=== PATIENT | female | born 1965 | race Caucasian/White ===

== ENCOUNTER → 2017-12-07 09:26 | Outpatient (CLI) | payer OTHER, SELFPAY ==
--- NOTE | 2017-12-07 | DI.CT.S_ITS ---
PROCEDURE: CT ABDOMEN PELVIS W CON INDICATIONS: PELVIC SWELLING TECHNIQUE: After the administration of oral and intravenous contrast, 5 mm thick sections acquired from the diaphragms to the symphysis. 5 mm thick coronal and sagittal reformats were performed. For radiation dose reduction, the following was used: automated exposure control, adjustment of mA and/or kV according to patient size. COMPARISON: None. FINDINGS: Image quality: Excellent. ABDOMEN: Lung bases: Subsegmental dependent atelectasis/scarring. Heart size is normal. Solid organs: Mild hepatic steatosis. Gallbladder negative. Biliary system is non-dilated. Pancreas enhances normally. Spleen is normal in size and enhancement. No adrenal nodules. Kidneys are normal in size and enhancement, without hydronephrosis. Peritoneum and bowel: Stomach, small bowel, and colon loops are normal in caliber and wall thickness. No free fluid or air. Normal appendix. The rectum is grossly unremarkable. No evidence of acute diverticulitis. There is moderate retained stool throughout the colon Nodes and vessels: No retroperitoneal or mesenteric adenopathy. Aorta and inferior vena cava are normal in caliber. Miscellaneous: No ventral hernias. PELVIS: Genitourinary: Bladder wall thickness is normal. Heterogeneous appearance of the uterus with a hyperdense focus seen in the left fundus image 79 series 2 measuring 2 cm, indeterminate. Miscellaneous: Small fat-containing left inguinal hernia. No pelvic adenopathy. Bones: No suspicious bony lesions. No vertebral body compression fractures. IMPRESSION: Overall, no acute abnormality. No discrete mass seen in the region of the fiducial marker placed on the skin surface marking palpable abnormality in the midline infraumbilical region. Low attenuation region within the uterus raising possibility of fibroid although technically nonspecific. Further evaluation with dedicated pelvic ultrasound could be performed as clinically warranted. Small left inguinal fat containing hernia Dictated by: Sesar Salamanca M.D. on 12/07/2017 at 11:28 Approved by: Sesar Salamanca M.D. on 12/07/2017 at 11:34
== END ==
PROVIDERS: PCP Physician Assistant; Visit Provider Physician Assistant
DX: R19.09 Other intra-abdominal and pelvic swelling, mass and lump (principal); K40.90 Unilateral inguinal hernia, without obstruction or gangrene, not specified as recurrent
CPT/HCPCS: 74177; Q9967

== ENCOUNTER → 2017-12-21 09:55 | Outpatient (CLI) | payer OTHER, SELFPAY ==
--- NOTE | 2017-12-21 | DI.US.S_ITS ---
PROCEDURE: US PELVIC COMPLETE INDICATIONS: QUESTION FIBROID TECHNIQUE: Real-time scanning was performed of the pelvic organs, with image documentation. Additional endovaginal scanning was necessary due to incomplete visualization of the adnexal and endometrial structures by transabdominal scanning. COMPARISON: None. FINDINGS: Transabdominal scanning: Limited scanning through the kidneys shows no hydronephrosis. No pathologic free abdominal or pelvic fluid. Endovaginal scanning: Uterus: Uterus is normal in size at 2.5 x 5.4 x 6.2 cm, anteverted, and there is a left-sided anterior intramural 1.4 cm maximal dimension fibroid and also a right-sided posterior intramural 1.5 cm maximal dimension fibroid. There is no visualized calcification or abnormal vascularity associated with these structures. The endometrium measures 2.0 mm in combined thickness. Ovaries: The ovaries bilaterally appear normal, measuring up to 1.1 x 0.9 x 2.2 cm on the right and 1.5 x 1.3 x 1.5 cm on the left. IMPRESSION: Anteverted uterus contains 2 separate fibroids, the largest of which measures up to 1.5 cm. Occasionally the anteversion of the uterus can lead to the physical examination finding suspicious for mass but no pelvic/adnexal mass is identified. Continue close clinical correlation is recommended and if a mass hidden to ultrasound remains a clinical concern CT scanning with contrast should be obtained. Bowel gas for example could obscured visualization of a bowel mass. Dictated by: Дмитрий Alvarado M.D. on 12/21/2017 at 11:11 Approved by: Дмитрий Alvarado M.D. on 12/21/2017 at 11:15
== END ==
PROVIDERS: PCP Physician Assistant; Visit Provider Physician Assistant
DX: D25.1 Intramural leiomyoma of uterus (principal)
CPT/HCPCS: 76830; 76856

== ENCOUNTER 2018-06-20 13:27 | Observation (INO) | payer OTHER, SELFPAY ==
[2018-06-20] VITALS (18 sets, daily range): BP systolic 90–130; BP diastolic 48–68; PULSE 60–93; RESP 8–22; TEMP 36.3–36.8; O2SAT 92–100; BMI 27.4
--- NOTE | 2018-06-20 | PATH_ITS ---
[facility] Accession Number: [id number] . 01 Material submitted: . appendix - APPENDIX . 02 Diagnosis: Appendix: Acute appendicitis. MRV/06/22/2018 . 02 Electronically signed: . Derrell Villalta MD, Pathologist NPI- [id number] . 01 Gross description: . Received in formalin, labeled with the patient's name and appendix, is a 9.3 cm in length by 1.1 cm in diameter intact mckinley-brown appendix. The attached mckinley-brown mesoappendix measures 8.3 x 2.8 x 2.2 cm. The serosa is smooth and dusky and no perforation is noted. Sectioning reveals a lumen measuring 1.1 cm in maximal diameter with mckinley-brown mucosa. Two mckinley-brown fecaliths are present within the lumen measuring 0.9 and 1.1 cm in greatest dimension. The resection margin is inked black, and the specimen is representatively submitted as follows: A1 - longitudinal section of tip, cross-section of proximal margin, and additional cross-sections. (MAGNUS:[id number]) /MRV . 02 Pathologist provided ICD-10: K35.80 . 02 CPT . 478503 Performed at: 01 [facility] [address] [facility], [place], [place] [id number] MD Eleizer Rangel MD Phone: [phone] Performed at: 02 [facility] [address] [place], [place] [id number] MD Emily Canas MD Phone: [phone]
--- NOTE | 2018-06-20 13:58 | ED.ABDPAIN ---
HPI - Abdominal Pain <Carolina Thompson PA-C - Last Filed: 06/20/18 21:57> General Chief Complaint: Abdominal Pain Stated Complaint: ABD LOWER PAIN Time Seen by Provider: 06/20/18 13:47 Source: patient Mode of arrival: ambulatory Limitations: no limitations History of Present Illness HPI narrative: This 53-year-old female complains of onset of abdominal pain upon awakening this morning. She describes pain as throughout the lower abdomen, constant, no alleviating features but may be increases on her side and when supine. She has had nausea, no vomiting. Has not had any food or fluids today. She denies fever. She denies any diarrhea or blood in the stools but states bowel movements off today. She denies any new urinary symptoms. She denies any chest pain or dyspnea. No new pain or swelling in the extremities or other new symptoms on systems review. Related Data Home Medications Medication Instructions Recorded Confirmed estradiol 0.025 mg/24 hr weekly 1 patch TRANSDERMAL TU 09/14/17 06/20/18 transdermal patch progesterone micronized 100 mg 100 mg PO QPM 09/14/17 06/20/18 capsule calcium carbonate-vitamin D3 1 tab PO DAILY 06/20/18 06/20/18 [Calcium 600 with Vitamin D3] magnesium 1 tab PO DAILY 06/20/18 06/20/18 Allergies Allergy/AdvReac Type Severity Reaction Status Date / Time No Known Drug Allergies Allergy Verified 06/20/18 15:53 Review of Systems <Carolina Thompson PA-C - Last Filed: 06/20/18 21:57> Review of Systems ROS Unobtainable: All systems reviewed & are unremarkable except as noted in HPI and below PFSH <Carolina Thompson PA-C - Last Filed: 06/20/18 21:57> Medical History Menopausal syndrome (Chronic) No pertinent family history (Chronic) Surgical History No pertinent past surgical history (Chronic) Social History Smoking Status: Current every day smoker alcohol intake: current (once monthly) Social History household members: spouse Smoking Status: Current every day smoker alcohol intake: current Exam <Carolina Thompson PA-C - Last Filed: 06/20/18 21:57> Narrative Exam Narrative: GENERAL APPEARANCE: Patient resting, appears mildly uncomfortable but in NAD HEENT: PERRL, EOMI, no scleral icterus, conjunctivae pink NECK: Supple, no masses LUNGS: Clear to auscultation bilaterally. HEART: Rate and rhythm regular, normal S1 and S2, no S3 or S4. ABDOMEN: Soft, nondistended, bowel sounds present x 4 quadrants, no masses palpable, no hepatosplenomegaly. tender across the midline lower quadrants, more on the right around McBurney's point, no guarding, +rebound EXTREMITIES: No edema, no calf tenderness DERMATOLOGIC: No jaundice or exanthem NEUROLOGIC: Alert and oriented with normal speech and coordination Initial Vital Signs Initial Vital Signs: Vital Signs Temperature 97.5 F L 06/20/18 13:30 Pulse Rate 67 06/20/18 13:30 Respiratory Rate 22 06/20/18 13:30 Blood Pressure 124/67 06/20/18 13:30 Pulse Oximetry 100 06/20/18 13:30 <Keegan Shields DO - Last Filed: 06/21/18 07:04> Initial Vital Signs Initial Vital Signs: Vital Signs Temperature 97.5 F L 06/20/18 13:30 Pulse Rate 67 06/20/18 13:30 Respiratory Rate 22 06/20/18 13:30 Blood Pressure 124/67 06/20/18 13:30 Pulse Oximetry 100 06/20/18 13:30 Course <Carolina Thompson PA-C - Last Filed: 06/20/18 21:57> Additional Information: I have reviewed lab and CT findings with patient. She is feeling substantially improved after pain medications. I have spoken with Dr. Hobbs, addiction professional for surgery, and he will see patient here (working on booking OR). She has been NPO today. Orders Ordered: Dextrose/Sodium Chloride (Dextrose 5%-0.45% Ns) 1,000 mls @ 100 mls/hr IV CONT [facility]IDAD Last Admin: 06/21/18 04:55 Dose: 100 mls/hr Infusion: 06/21/18 04:55 Dose: 100 mls/hr Admin: 06/20/18 20:06 Dose: 100 mls/hr Ketorolac Tromethamine (Toradol) 30 mg IV Q6HR [facility] Stop: 06/25/18 18:15 Last Admin: 06/21/18 06:16 Dose: 30 mg Admin: 06/21/18 00:12 Dose: 30 mg Morphine Sulfate (Morphine) 1 mg IV Q2HR PRN PRN Reason: Pain, Moderate (4-6) Last Admin: 06/20/18 20:03 Dose: 1 mg Oxycodone/Acetaminophen (Percocet 5/325) 1 tab PO Q4HR PRN PRN Reason: Pain, Moderate (4-6) Last Admin: 06/20/18 20:03 Dose: 1 tab Ranitidine HCl (Zantac) 150 mg PO BID [facility] Last Admin: 06/20/18 20:03 Dose: 150 mg Discontinued Medications Bupivacaine HCl/Epinephrine Bitart (Sensorcaine 0.5% W/ Epi (Pf)) 30 ml INJ NOW ONE Stop: 06/20/18 16:50 Last Admin: 06/20/18 16:52 Dose: 10 ml Sodium Chloride 1,000 ml/ (Bacitracin 50,000 unit) 0 ml IRR NOW ONE Stop: 06/20/18 16:50 Last Admin: 06/20/18 16:49 Dose: 1,000 irrig.soln Fentanyl (Sublimaze) 50 mcg IV Q5MIN PRN PRN Reason: Pain, Moderate (4-6) Hydromorphone HCl (Dilaudid) 1 mg IV NOW ONE Stop: 06/20/18 14:18 Last Admin: 06/20/18 14:43 Dose: 1 mg Hydromorphone HCl (Dilaudid) 1 mg IV Q3H PRN PRN Reason: Pain, Moderate (4-6) Last Admin: 06/20/18 17:37 Dose: 1 mg Sodium Chloride (Normal Saline 0.9%) 1,000 mls @ 1,000 mls/hr IV BOLUS ONE Stop: 06/20/18 15:18 Last Infusion: 06/20/18 15:45 Dose: 0 mls/hr Admin: 06/20/18 14:42 Dose: 1,000 mls/hr Ceftriaxone Sodium/Dextrose (Rocephin) 2 gm in 50 mls @ 100 mls/hr IV NOW ONE Stop: 06/20/18 16:14 Last Infusion: 06/20/18 16:35 Dose: 0 mls/hr Admin: 06/20/18 15:48 Dose: 100 mls/hr Lactated Ringer's (Lactated Ringers) 1,000 mls @ 42 mls/hr IV NOW ONE Stop: 06/21/18 15:36 Last Infusion: 06/20/18 18:19 Dose: 0 mls/hr Admin: 06/20/18 17:12 Dose: 42 mls/hr Infusion: 06/20/18 17:12 Dose: 42 mls/hr Admin: 06/20/18 15:49 Dose: 42 mls/hr Lactated Ringer's (Lactated Ringers) 1,000 mls @ 42 mls/hr IV CONT CARIDAD Last Admin: 06/20/18 18:21 Dose: Not Given Dextrose/Sodium Chloride (Dextrose 5%-0.45% Ns) 1,000 mls @ 100 mls/hr IV CONT CARIDAD Last Admin: 06/20/18 18:21 Dose: Not Given Ketorolac Tromethamine (Toradol) 30 mg IV NOW ONE Stop: 06/20/18 14:18 Last Admin: 06/20/18 14:43 Dose: 30 mg Ketorolac Tromethamine (Toradol) 30 mg IV Q6HR CARID[facility] Stop: 06/25/18 17:10 Last Admin: 06/20/18 18:22 Dose: Not Given Admin: 06/20/18 17:20 Dose: 30 mg Metoclopramide HCl (Reglan) 10 mg IV NOW PRN PRN Reason: Nausea And Vomiting Morphine Sulfate (Morphine) 2 mg IV Q4HR PRN PRN Reason: Pain, Moderate (4-6) Neomycin/Polymyxin/Bacitracin (Neosporin) 1 each TOP NOW ONE Stop: 06/20/18 17:05 Last Admin: 06/20/18 17:05 Dose: 1 each Ondansetron HCl (Zofran) 4 mg IV NOW ONE Stop: 06/20/18 14:18 Last Admin: 06/20/18 14:43 Dose: 4 mg Ondansetron HCl (Zofran) 4 mg IV NOW PRN PRN Reason: Nausea And Vomiting Oxycodone/Acetaminophen (Percocet 5/325) 1 tab PO Q4HR PRN PRN Reason: Pain, Moderate (4-6) Ranitidine HCl (Zantac) 150 mg PO BID [facility] Vital Signs - 8 hr 06/21/18 05:08 Temperature 98.0 F Pulse Rate 72 Respiratory Rate 16 Blood Pressure 99/50 L Pulse Oximetry 93 <Keegan Shields, DO - Last Filed: 06/21/18 07:04> Orders Ordered: Dextrose/Sodium Chloride (Dextrose 5%-0.45% Ns) 1,000 mls @ 100 mls/hr IV CONT [facility] Last Admin: 06/21/18 04:55 Dose: 100 mls/hr Infusion: 06/21/18 04:55 Dose: 100 mls/hr Admin: 06/20/18 20:06 Dose: 100 mls/hr Ketorolac Tromethamine (Toradol) 30 mg IV Q6HR [facility] Stop: 06/25/18 18:15 Last Admin: 06/21/18 06:16 Dose: 30 mg Admin: 06/21/18 00:12 Dose: 30 mg Morphine Sulfate (Morphine) 1 mg IV Q2HR PRN PRN Reason: Pain, Moderate (4-6) Last Admin: 06/20/18 20:03 Dose: 1 mg Oxycodone/Acetaminophen (Percocet 5/325) 1 tab PO Q4HR PRN PRN Reason: Pain, Moderate (4-6) Last Admin: 06/20/18 20:03 Dose: 1 tab Ranitidine HCl (Zantac) 150 mg PO BID [facility] Last Admin: 06/20/18 20:03 Dose: 150 mg Discontinued Medications Bupivacaine HCl/Epinephrine Bitart (Sensorcaine 0.5% W/ Epi (Pf)) 30 ml INJ NOW ONE Stop: 06/20/18 16:50 Last Admin: 06/20/18 16:52 Dose: 10 ml Sodium Chloride 1,000 ml/ (Bacitracin 50,000 unit) 0 ml IRR NOW ONE Stop: 06/20/18 16:50 Last Admin: 06/20/18 16:49 Dose: 1,000 irrig.soln Fentanyl (Sublimaze) 50 mcg IV Q5MIN PRN PRN Reason: Pain, Moderate (4-6) Hydromorphone HCl (Dilaudid) 1 mg IV NOW ONE Stop: 06/20/18 14:18 Last Admin: 06/20/18 14:43 Dose: 1 mg Hydromorphone HCl (Dilaudid) 1 mg IV Q3H PRN PRN Reason: Pain, Moderate (4-6) Last Admin: 06/20/18 17:37 Dose: 1 mg Sodium Chloride (Normal Saline 0.9%) 1,000 mls @ 1,000 mls/hr IV BOLUS ONE Stop: 06/20/18 15:18 Last Infusion: 06/20/18 15:45 Dose: 0 mls/hr Admin: 06/20/18 14:42 Dose: 1,000 mls/hr Ceftriaxone Sodium/Dextrose (Rocephin) 2 gm in 50 mls @ 100 mls/hr IV NOW ONE Stop: 06/20/18 16:14 Last Infusion: 06/20/18 16:35 Dose: 0 mls/hr Admin: 06/20/18 15:48 Dose: 100 mls/hr Lactated Ringer's (Lactated Ringers) 1,000 mls @ 42 mls/hr IV NOW ONE Stop: 06/21/18 15:36 Last Infusion: 06/20/18 18:19 Dose: 0 mls/hr Admin: 06/20/18 17:12 Dose: 42 mls/hr Infusion: 06/20/18 17:12 Dose: 42 mls/hr Admin: 06/20/18 15:49 Dose: 42 mls/hr Lactated Ringer's (Lactated Ringers) 1,000 mls @ 42 mls/hr IV CONT CARIDAD Last Admin: 06/20/18 18:21 Dose: Not Given Dextrose/Sodium Chloride (Dextrose 5%-0.45% Ns) 1,000 mls @ 100 mls/hr IV CONT [facility] Last Admin: 06/20/18 18:21 Dose: Not Given Ketorolac Tromethamine (Toradol) 30 mg IV NOW ONE Stop: 06/20/18 14:18 Last Admin: 06/20/18 14:43 Dose: 30 mg Ketorolac Tromethamine (Toradol) 30 mg IV Q6HR [facility] Stop: 06/25/18 17:10 Last Admin: 06/20/18 18:22 Dose: Not Given Admin: 06/20/18 17:20 Dose: 30 mg Metoclopramide HCl (Reglan) 10 mg IV NOW PRN PRN Reason: Nausea And Vomiting Morphine Sulfate (Morphine) 2 mg IV Q4HR PRN PRN Reason: Pain, Moderate (4-6) Neomycin/Polymyxin/Bacitracin (Neosporin) 1 each TOP NOW ONE Stop: 06/20/18 17:05 Last Admin: 06/20/18 17:05 Dose: 1 each Ondansetron HCl (Zofran) 4 mg IV NOW ONE Stop: 06/20/18 14:18 Last Admin: 06/20/18 14:43 Dose: 4 mg Ondansetron HCl (Zofran) 4 mg IV NOW PRN PRN Reason: Nausea And Vomiting Oxycodone/Acetaminophen (Percocet 5/325) 1 tab PO Q4HR PRN PRN Reason: Pain, Moderate (4-6) Ranitidine HCl (Zantac) 150 mg PO BID [facility] Vital Signs - 8 hr 06/21/18 05:08 Temperature 98.0 F Pulse Rate 72 Respiratory Rate 16 Blood Pressure 99/50 L Pulse Oximetry 93 MDM - Abdominal Pain <Carolina Thompson PA-C - Last Filed: 06/20/18 21:57> Lab Data Attestation: I reviewed the patient's lab results. Result diagrams: 06/20/18 13:50 06/20/18 13:50 Lab Results 06/20/18 06/20/18 06/20/18 Range/Units 13:50 13:50 13:50 WBC 13.8 H (4.5-11.0) X10^3/uL RBC 4.92 (4.0-5.2) X10^6/uL Hgb 14.9 (12.0-16.0) g/dL Hct 43.0 (36-46) % MCV 87.4 (80-100) fL MCH 30.2 (26-34) PG MCHC 34.6 (30-36) % RDW 13.6 (11.6-14.8) % Plt Count 306 (150-400) X10^3/uL Neut % (Auto) 87.8 H (50-75) % Lymph % (Auto) 7.6 L (25-40) % [place] % (Auto) 4.1 (3-14) % Eos % (Auto) 0.1 L (2-4) % Baso % (Auto) 0.4 (0-2) % Neut # (Auto) 53293 H (4939-1965) /uL Lymph # (Auto) 1100 (9831-9767) /uL [place] # (Auto) 600 (0-900) /uL Eos # (Auto) 0 (0-450) /uL Baso # (Auto) 100 (0-100) /uL PT 11.1 (10.1-12.7) SECONDS INR 1.0 (0.9-1.3) APTT 34 (26.4-36.2) SECONDS Sodium 137 (137-145) mmol/L Potassium 3.7 (3.4-5.1) mmol/L Chloride 102 (98-107) mmol/L Carbon Dioxide 26 (22-32) mmol/L BUN 17 (7-17) mg/dL Creatinine 0.60 (0.52-1.04) mg/dL Estimated GFR > 60.0 (>60) mL/min BUN/Creatinine Ratio 28.3 H (6-22) Glucose 108 H (70-100) mg/dL Calcium 9.8 (8.4-10.2) mg/dL Total Bilirubin 0.8 (0.2-1.3) mg/dL AST 28 (14-36) IU/L ALT 31 (9-52) IU/L Alkaline Phosphatase 135 H (38-126) U/L C-Reactive Protein (<1.0) mg/dL Total Protein 8.2 (6.3-8.2) g/dL Albumin 4.7 (3.5-5.0) g/dL Globulin 3.5 (1.7-4.1) g/dL Albumin/Globulin Ratio 1.3 (1.0-2.8) Lipase 90 (23-300) U/L 06/20/18 Range/Units 13:50 WBC (4.5-11.0) X10^3/uL RBC (4.0-5.2) X10^6/uL Hgb (12.0-16.0) g/dL Hct (36-46) % MCV (80-100) fL MCH (26-34) PG MCHC (30-36) % RDW (11.6-14.8) % Plt Count (150-400) X10^3/uL Neut % (Auto) (50-75) % Lymph % (Auto) (25-40) % [place] % (Auto) (3-14) % Eos % (Auto) (2-4) % Baso % (Auto) (0-2) % Neut # (Auto) (4005-5821) /uL Lymph # (Auto) (2248-6687) /uL [place] # (Auto) (0-900) /uL Eos # (Auto) (0-450) /uL Baso # (Auto) (0-100) /uL PT (10.1-12.7) SECONDS INR (0.9-1.3) APTT (26.4-36.2) SECONDS Sodium (137-145) mmol/L Potassium (3.4-5.1) mmol/L Chloride (98-107) mmol/L Carbon Dioxide (22-32) mmol/L BUN (7-17) mg/dL Creatinine (0.52-1.04) mg/dL Estimated GFR (>60) mL/min BUN/Creatinine Ratio (6-22) Glucose (70-100) mg/dL Calcium (8.4-10.2) mg/dL Total Bilirubin (0.2-1.3) mg/dL AST (14-36) IU/L ALT (9-52) IU/L Alkaline Phosphatase (38-126) U/L C-Reactive Protein 0.8 (<1.0) mg/dL Total Protein (6.3-8.2) g/dL Albumin (3.5-5.0) g/dL Globulin (1.7-4.1) g/dL Albumin/Globulin Ratio (1.0-2.8) Lipase (23-300) U/L Imaging Data CT scan - abdomen: Radiologist's impression: 18 Carolina Thompson PA-C Find Patient Imaging Sebas Mendoza 53 F 1965 ACTIVITY DATE EXAM STATUS AUTHOR 06/20/18 14:[address] [address] [address] Scan Report Signed Patient: Sebas Mendoza RMR#: [id number] : 1965Acct:[id number] Age/Sex: 53 / FDate of Service: 06/20/18 Loc: ED Accession Number: [id number] Procedure: CT abdomen pelvis w con Ordering Provider: Carolina Thompson P.A-C PROCEDURE: CT ABDOMEN PELVIS W CON INDICATIONS: midline, right lower quad pain, nausea. TECHNIQUE: After the administration of intravenous contrast, 5 mm thick sections acquired from the diaphragm to the symphysis. 5 mm coronal and sagittal reformats were acquired. For radiation dose reduction, the following was used: automated exposure control, adjustment of mA and/or kV according to patient size. COMPARISON: Merged With [facility], CT, CT ABDOMEN PELVIS W CON, 12/07/2017, 10:25. FINDINGS: Image quality: Excellent. ABDOMEN: Lung bases: Lung bases are clear. Heart size is normal. Solid organs: Liver is normal in size and enhancement. Mild hepatic steatosis is seen. Gallbladder is within normal limits. Biliary system is non dilated. Pancreas enhances normally. Spleen is normal in size and enhancement. No adrenal nodules. Kidneys demonstrate normal size and enhancement, without hydronephrosis. Peritoneum and bowel: There is no evidence of bowel obstruction. Appendix is visualized in right lower quadrant abdomen and is enlarged in size measures up to 12 mm in diameter proximally. Multiple appendicoliths are seen including 8mm stone in proximal appendiceal lumen. There is diffuse appendiceal wall thickening and periappendiceal fat stranding consistent with acute appendicitis. No abscess collection. No evidence of perforation. No other area of abnormal bowel wall thickening. No free fluid or free air. Nodes and vessels: No retroperitoneal or mesenteric adenopathy by size criteria. Aorta and inferior vena cava are normal in size. Miscellaneous: No ventral hernias. PELVIS: Genitourinary: Bladder wall thickness is normal. Miscellaneous: No inguinal hernias or adenopathy. Bones: No suspicious bony lesions. No vertebral body compression fractures. IMPRESSION: 1. Finding is consistent with acute appendicitis with a numerous appendicoliths. No evidence of perforation. No bowel obstruction, free fluid or free air. 2. No renal stone or hydronephrosis. Dictated by: Jeff Cha M.D. on 06/20/2018 at 14:49 Approved by: Jeff Cha M.D. on 06/20/2018 at 14:51 ECG Data Attestation: I personally reviewed and interpreted this ECG as follows: (Sinus bradycardia with rate 55, normal axis) <Keegan Shields DO - Last Filed: 06/21/18 07:04> Lab Data Lab Results 0406/20/18 06/20/18 Range/Units 13:50 13:50 13:50 WBC 13.8 H (4.5-11.0) X10^3/uL RBC 4.92 (4.0-5.2) X10^6/uL Hgb 14.9 (12.0-16.0) g/dL Hct 43.0 (36-46) % MCV 87.4 (80-100) fL MCH 30.2 (26-34) PG MCHC 34.6 (30-36) % RDW 13.6 (11.6-14.8) % Plt Count 306 (150-400) X10^3/uL Neut % (Auto) 87.8 H (50-75) % Lymph % (Auto) 7.6 L (25-40) % [place] % (Auto) 4.1 (3-14) % Eos % (Auto) 0.1 L (2-4) % Baso % (Auto) 0.4 (0-2) % Neut # (Auto) 14885 H (1526-4336) /uL Lymph # (Auto) 1100 (5372-3330) /uL [place] # (Auto) 600 (0-900) /uL Eos # (Auto) 0 (0-450) /uL Baso # (Auto) 100 (0-100) /uL PT 11.1 (10.1-12.7) SECONDS INR 1.0 (0.9-1.3) APTT 34 (26.4-36.2) SECONDS Sodium 137 (137-145) mmol/L Potassium 3.7 (3.4-5.1) mmol/L Chloride 102 (98-107) mmol/L Carbon Dioxide 26 (22-32) mmol/L BUN 17 (7-17) mg/dL Creatinine 0.60 (0.52-1.04) mg/dL Estimated GFR > 60.0 (>60) mL/min BUN/Creatinine Ratio 28.3 H (6-22) Glucose 108 H (70-100) mg/dL Calcium 9.8 (8.4-10.2) mg/dL Total Bilirubin 0.8 (0.2-1.3) mg/dL AST 28 (14-36) IU/L ALT 31 (9-52) IU/L Alkaline Phosphatase 135 H (38-126) U/L C-Reactive Protein (<1.0) mg/dL Total Protein 8.2 (6.3-8.2) g/dL Albumin 4.7 (3.5-5.0) g/dL Globulin 3.5 (1.7-4.1) g/dL Albumin/Globulin Ratio 1.3 (1.0-2.8) Lipase 90 (23-300) U/L 06/20/18 Range/Units 13:50 WBC (4.5-11.0) X10^3/uL RBC (4.0-5.2) X10^6/uL Hgb (12.0-16.0) g/dL Hct (36-46) % MCV (80-100) fL MCH (26-34) PG MCHC (30-36) % RDW (11.6-14.8) % Plt Count (150-400) X10^3/uL Neut % (Auto) (50-75) % Lymph % (Auto) (25-40) % [place] % (Auto) (3-14) % Eos % (Auto) (2-4) % Baso % (Auto) (0-2) % Neut # (Auto) (5378-0739) /uL Lymph # (Auto) (8615-5937) /uL [place] # (Auto) (0-900) /uL Eos # (Auto) (0-450) /uL Baso # (Auto) (0-100) /uL PT (10.1-12.7) SECONDS INR (0.9-1.3) APTT (26.4-36.2) SECONDS Sodium (137-145) mmol/L Potassium (3.4-5.1) mmol/L Chloride (98-107) mmol/L Carbon Dioxide (22-32) mmol/L BUN (7-17) mg/dL Creatinine (0.52-1.04) mg/dL Estimated GFR (>60) mL/min BUN/Creatinine Ratio (6-22) Glucose (70-100) mg/dL Calcium (8.4-10.2) mg/dL Total Bilirubin (0.2-1.3) mg/dL AST (14-36) IU/L ALT (9-52) IU/L Alkaline Phosphatase (38-126) U/L C-Reactive Protein 0.8 (<1.0) mg/dL Total Protein (6.3-8.2) g/dL Albumin (3.5-5.0) g/dL Globulin (1.7-4.1) g/dL Albumin/Globulin Ratio (1.0-2.8) Lipase (23-300) U/L Discharge Plan Departure Patient Disposition: Admitted As Inpatient Clinical Impression: Appendicitis Qualifiers: Appendicitis type: acute appendicitis Acute appendicitis type: unspecified acute appendicitis type Qualified Code(s): K35.80 - Unspecified acute appendicitis Discharge Date/Time: 06/20/18 15:45 Interventions: ED Discharge Assessment Last Done: 06/20/18 15:45 Admit Date/Time: 06/20/18 15:27 Admit Provider: Oliver Sherman <Keegan Shields DO - Last Filed: 06/21/18 07:04> Cosign ED Attending Raul Attestation: I was available for consultation during this patient's emergency department encounter
[2018-06-20 14:04] LABS: Add Manual Diff / Slide Review NO; Basophils Absolute Auto 100 /uL (0-100); Basophils Percent Auto 0.4 % (0-2); Eosinophils Absolute Auto 0 /uL (0-450); Eosinophils Percent Auto 0.1 % (2-4); Hemoglobin 14.9 g/dL (12.0-16.0); Lymphocytes Absolute Auto 1100 /uL (1100-4500); Lymphocytes Percent Auto 7.6 % (25-40); Mean Corpuscular HGB Conc 34.6 % (30-36); Mean Corpuscular Hemoglobin 30.2 PG (26-34); Mean Corpuscular Volume 87.4 fL (80-100); Monocytes Absolute Auto 600 /uL (0-900); Monocytes Percent Auto 4.1 % (3-14); Neutrophils Absolute Auto 12100 /uL (1500-7000); Neutrophils Percent Auto 87.8 % (50-75); Platelet Count 306 X10^3/uL (150-400); Red Blood Cell Count 4.92 X10^6/uL (4.0-5.2); Red Cell Distribution Width 13.6 % (11.6-14.8); White Blood Cell Count 13.8 X10^3/uL (4.5-11.0)
[2018-06-20 14:12] LABS: Prothrombin Time 11.1 SECONDS (10.1-12.7)
[2018-06-20 14:14] LABS: PTT Partial Thromboplastin Tim 34 SECONDS (26.4-36.2)
[2018-06-20 14:17] LABS: Alanine Aminotransferase 31 IU/L (9-52); Albumin 4.7 g/dL (3.5-5.0); Albumin Globulin Ratio 1.3 (1.0-2.8); Alkaline Phosphatase 135 U/L (38-126); Aspartate Aminotransferase 28 IU/L (14-36); BUN Creatinine Ratio 28.3 (6-22); Bilirubin Total 0.8 mg/dL (0.2-1.3); Blood Urea Nitrogen 17 mg/dL (7-17); Calcium 9.8 mg/dL (8.4-10.2); Carbon Dioxide 26 mmol/L (22-32); Chloride 102 mmol/L (98-107); Estimated Glomerular Filt Rate > 60.0 mL/min (>60); Globulin 3.5 g/dL (1.7-4.1); Glucose 108 mg/dL (70-100); HEMOLYSIS < 15 (0-50); Lipase 90 U/L (23-300); Potassium 3.7 mmol/L (3.4-5.1); Sodium 137 mmol/L (137-145); Total Protein 8.2 g/dL (6.3-8.2)
--- NOTE | 2018-06-20 14:24 | ED_ITS ---
HPI - Abdominal Pain <Carolina Thompson PA-C - Last Filed: 06/20/18 21:57> General Chief Complaint: Abdominal Pain Stated Complaint: ABD LOWER PAIN Time Seen by Provider: 06/20/18 13:47 Source: patient Mode of arrival: ambulatory Limitations: no limitations History of Present Illness HPI narrative: This 53-year-old female complains of onset of abdominal pain upon awakening this morning. She describes pain as throughout the lower abdomen, constant, no alleviating features but may be increases on her side and when supine. She has had nausea, no vomiting. Has not had any food or fluids today. She denies fever. She denies any diarrhea or blood in the stools but states bowel movements off today. She denies any new urinary symptoms. She denies any chest pain or dyspnea. No new pain or swelling in the extremities or other new symptoms on systems review. Related Data Home Medications Medication Instructions Recorded Confirmed estradiol 0.025 mg/24 hr weekly 1 patch TRANSDERMAL TU 09/14/17 06/20/18 transdermal patch progesterone micronized 100 mg 100 mg PO QPM 09/14/17 06/20/18 capsule calcium carbonate-vitamin D3 1 tab PO DAILY 06/20/18 06/20/18 [Calcium 600 with Vitamin D3] magnesium 1 tab PO DAILY 06/20/18 06/20/18 Allergies Allergy/AdvReac Type Severity Reaction Status Date / Time No Known Drug Allergies Allergy Verified 06/20/18 15:53 Review of Systems <Carolina Thompson PA-C - Last Filed: 06/20/18 21:57> Review of Systems ROS Unobtainable: All systems reviewed & are unremarkable except as noted in HPI and below PFSH <Carolina Thompson PA-C - Last Filed: 06/20/18 21:57> Medical History Menopausal syndrome (Chronic) No pertinent family history (Chronic) Surgical History No pertinent past surgical history (Chronic) Social History Smoking Status: Current every day smoker alcohol intake: current (once monthly) Social History household members: spouse Smoking Status: Current every day smoker alcohol intake: current Exam <Carolina Thompson PA-C - Last Filed: 06/20/18 21:57> Narrative Exam Narrative: GENERAL APPEARANCE: Patient resting, appears mildly uncomfortable but in NAD HEENT: PERRL, EOMI, no scleral icterus, conjunctivae pink NECK: Supple, no masses LUNGS: Clear to auscultation bilaterally. HEART: Rate and rhythm regular, normal S1 and S2, no S3 or S4. ABDOMEN: Soft, nondistended, bowel sounds present x 4 quadrants, no masses palpable, no hepatosplenomegaly. tender across the midline lower quadrants, more on the right around McBurney's point, no guarding, +rebound EXTREMITIES: No edema, no calf tenderness DERMATOLOGIC: No jaundice or exanthem NEUROLOGIC: Alert and oriented with normal speech and coordination Initial Vital Signs Initial Vital Signs: Vital Signs Temperature 97.5 F L 06/20/18 13:30 Pulse Rate 67 06/20/18 13:30 Respiratory Rate 22 06/20/18 13:30 Blood Pressure 124/67 06/20/18 13:30 Pulse Oximetry 100 06/20/18 13:30 <Keegan Shields DO - Last Filed: 06/21/18 07:04> Initial Vital Signs Initial Vital Signs: Vital Signs Temperature 97.5 F L 06/20/18 13:30 Pulse Rate 67 06/20/18 13:30 Respiratory Rate 22 06/20/18 13:30 Blood Pressure 124/67 06/20/18 13:30 Pulse Oximetry 100 06/20/18 13:30 Course <Carolina Thompson PA-C - Last Filed: 06/20/18 21:57> Additional Information: I have reviewed lab and CT findings with patient. She is feeling substantially improved after pain medications. I have spoken with Dr. Hobbs, dairy nutrition consultant for surgery, and he will see patient here (working on booking OR). She has been NPO today. Orders Ordered: Dextrose/Sodium Chloride (Dextrose 5%-0.45% Ns) 1,000 mls @ 100 mls/hr IV CONT [facility] Last Admin: 06/21/18 04:55 Dose: 100 mls/hr Infusion: 06/21/18 04:55 Dose: 100 mls/hr Admin: 06/20/18 20:06 Dose: 100 mls/hr Ketorolac Tromethamine (Toradol) 30 mg IV Q6HR [facility] Stop: 06/25/18 18:15 Last Admin: 06/21/18 06:16 Dose: 30 mg Admin: 06/21/18 00:12 Dose: 30 mg Morphine Sulfate (Morphine) 1 mg IV Q2HR PRN PRN Reason: Pain, Moderate (4-6) Last Admin: 06/20/18 20:03 Dose: 1 mg Oxycodone/Acetaminophen (Percocet 5/325) 1 tab PO Q4HR PRN PRN Reason: Pain, Moderate (4-6) Last Admin: 06/20/18 20:03 Dose: 1 tab Ranitidine HCl (Zantac) 150 mg PO BID [facility] Last Admin: 06/20/18 20:03 Dose: 150 mg Discontinued Medications Bupivacaine HCl/Epinephrine Bitart (Sensorcaine 0.5% W/ Epi (Pf)) 30 ml INJ NOW ONE Stop: 06/20/18 16:50 Last Admin: 06/20/18 16:52 Dose: 10 ml Sodium Chloride 1,000 ml/ (Bacitracin 50,000 unit) 0 ml IRR NOW ONE Stop: 06/20/18 16:50 Last Admin: 06/20/18 16:49 Dose: 1,000 irrig.soln Fentanyl (Sublimaze) 50 mcg IV Q5MIN PRN PRN Reason: Pain, Moderate (4-6) Hydromorphone HCl (Dilaudid) 1 mg IV NOW ONE Stop: 06/20/18 14:18 Last Admin: 06/20/18 14:43 Dose: 1 mg Hydromorphone HCl (Dilaudid) 1 mg IV Q3H PRN PRN Reason: Pain, Moderate (4-6) Last Admin: 06/20/18 17:37 Dose: 1 mg Sodium Chloride (Normal Saline 0.9%) 1,000 mls @ 1,000 mls/hr IV BOLUS ONE Stop: 06/20/18 15:18 Last Infusion: 06/20/18 15:45 Dose: 0 mls/hr Admin: 06/20/18 14:42 Dose: 1,000 mls/hr Ceftriaxone Sodium/Dextrose (Rocephin) 2 gm in 50 mls @ 100 mls/hr IV NOW ONE Stop: 06/20/18 16:14 Last Infusion: 06/20/18 16:35 Dose: 0 mls/hr Admin: 06/20/18 15:48 Dose: 100 mls/hr Lactated Ringer's (Lactated Ringers) 1,000 mls @ 42 mls/hr IV NOW ONE Stop: 06/21/18 15:36 Last Infusion: 06/20/18 18:19 Dose: 0 mls/hr Admin: 06/20/18 17:12 Dose: 42 mls/hr Infusion: 06/20/18 17:12 Dose: 42 mls/hr Admin: 06/20/18 15:49 Dose: 42 mls/hr Lactated Ringer's (Lactated Ringers) 1,000 mls @ 42 mls/hr IV CONT CARIDAD Last Admin: 06/20/18 18:21 Dose: Not Given Dextrose/Sodium Chloride (Dextrose 5%-0.45% Ns) 1,000 mls @ 100 mls/hr IV CONT CARIDAD Last Admin: 06/20/18 18:21 Dose: Not Given Ketorolac Tromethamine (Toradol) 30 mg IV NOW ONE Stop: 06/20/18 14:18 Last Admin: 06/20/18 14:43 Dose: 30 mg Ketorolac Tromethamine (Toradol) 30 mg IV Q6HR CAR[facility] Stop: 06/25/18 17:10 Last Admin: 06/20/18 18:22 Dose: Not Given Admin: 06/20/18 17:20 Dose: 30 mg Metoclopramide HCl (Reglan) 10 mg IV NOW PRN PRN Reason: Nausea And Vomiting Morphine Sulfate (Morphine) 2 mg IV Q4HR PRN PRN Reason: Pain, Moderate (4-6) Neomycin/Polymyxin/Bacitracin (Neosporin) 1 each TOP NOW ONE Stop: 06/20/18 17:05 Last Admin: 06/20/18 17:05 Dose: 1 each Ondansetron HCl (Zofran) 4 mg IV NOW ONE Stop: 06/20/18 14:18 Last Admin: 06/20/18 14:43 Dose: 4 mg Ondansetron HCl (Zofran) 4 mg IV NOW PRN PRN Reason: Nausea And Vomiting Oxycodone/Acetaminophen (Percocet 5/325) 1 tab PO Q4HR PRN PRN Reason: Pain, Moderate (4-6) Ranitidine HCl (Zantac) 150 mg PO BID [facility] Vital Signs - 8 hr 06/21/18 05:08 Temperature 98.0 F Pulse Rate 72 Respiratory Rate 16 Blood Pressure 99/50 L Pulse Oximetry 93 <Keegan Shields, DO - Last Filed: 06/21/18 07:04> Orders Ordered: Dextrose/Sodium Chloride (Dextrose 5%-0.45% Ns) 1,000 mls @ 100 mls/hr IV CONT [facility] Last Admin: 06/21/18 04:55 Dose: 100 mls/hr Infusion: 06/21/18 04:55 Dose: 100 mls/hr Admin: 06/20/18 20:06 Dose: 100 mls/hr Ketorolac Tromethamine (Toradol) 30 mg IV Q6HR [facility] Stop: 06/25/18 18:15 Last Admin: 06/21/18 06:16 Dose: 30 mg Admin: 06/21/18 00:12 Dose: 30 mg Morphine Sulfate (Morphine) 1 mg IV Q2HR PRN PRN Reason: Pain, Moderate (4-6) Last Admin: 06/20/18 20:03 Dose: 1 mg Oxycodone/Acetaminophen (Percocet 5/325) 1 tab PO Q4HR PRN PRN Reason: Pain, Moderate (4-6) Last Admin: 06/20/18 20:03 Dose: 1 tab Ranitidine HCl (Zantac) 150 mg PO BID [facility] Last Admin: 06/20/18 20:03 Dose: 150 mg Discontinued Medications Bupivacaine HCl/Epinephrine Bitart (Sensorcaine 0.5% W/ Epi (Pf)) 30 ml INJ NOW ONE Stop: 06/20/18 16:50 Last Admin: 06/20/18 16:52 Dose: 10 ml Sodium Chloride 1,000 ml/ (Bacitracin 50,000 unit) 0 ml IRR NOW ONE Stop: 06/20/18 16:50 Last Admin: 06/20/18 16:49 Dose: 1,000 irrig.soln Fentanyl (Sublimaze) 50 mcg IV Q5MIN PRN PRN Reason: Pain, Moderate (4-6) Hydromorphone HCl (Dilaudid) 1 mg IV NOW ONE Stop: 06/20/18 14:18 Last Admin: 06/20/18 14:43 Dose: 1 mg Hydromorphone HCl (Dilaudid) 1 mg IV Q3H PRN PRN Reason: Pain, Moderate (4-6) Last Admin: 06/20/18 17:37 Dose: 1 mg Sodium Chloride (Normal Saline 0.9%) 1,000 mls @ 1,000 mls/hr IV BOLUS ONE Stop: 06/20/18 15:18 Last Infusion: 06/20/18 15:45 Dose: 0 mls/hr Admin: 06/20/18 14:42 Dose: 1,000 mls/hr Ceftriaxone Sodium/Dextrose (Rocephin) 2 gm in 50 mls @ 100 mls/hr IV NOW ONE Stop: 06/20/18 16:14 Last Infusion: 06/20/18 16:35 Dose: 0 mls/hr Admin: 06/20/18 15:48 Dose: 100 mls/hr Lactated Ringer's (Lactated Ringers) 1,000 mls @ 42 mls/hr IV NOW ONE Stop: 06/21/18 15:36 Last Infusion: 06/20/18 18:19 Dose: 0 mls/hr Admin: 06/20/18 17:12 Dose: 42 mls/hr Infusion: 06/20/18 17:12 Dose: 42 mls/hr Admin: 06/20/18 15:49 Dose: 42 mls/hr Lactated Ringer's (Lactated Ringers) 1,000 mls @ 42 mls/hr IV CONT CARIDAD Last Admin: 06/20/18 18:21 Dose: Not Given Dextrose/Sodium Chloride (Dextrose 5%-0.45% Ns) 1,000 mls @ 100 mls/hr IV CONT CARIDAD Last Admin: 06/20/18 18:21 Dose: Not Given Ketorolac Tromethamine (Toradol) 30 mg IV NOW ONE Stop: 06/20/18 14:18 Last Admin: 06/20/18 14:43 Dose: 30 mg Ketorolac Tromethamine (Toradol) 30 mg IV Q6HR [facility] Stop: 06/25/18 17:10 Last Admin: 06/20/18 18:22 Dose: Not Given Admin: 06/20/18 17:20 Dose: 30 mg Metoclopramide HCl (Reglan) 10 mg IV NOW PRN PRN Reason: Nausea And Vomiting Morphine Sulfate (Morphine) 2 mg IV Q4HR PRN PRN Reason: Pain, Moderate (4-6) Neomycin/Polymyxin/Bacitracin (Neosporin) 1 each TOP NOW ONE Stop: 06/20/18 17:05 Last Admin: 06/20/18 17:05 Dose: 1 each Ondansetron HCl (Zofran) 4 mg IV NOW ONE Stop: 06/20/18 14:18 Last Admin: 06/20/18 14:43 Dose: 4 mg Ondansetron HCl (Zofran) 4 mg IV NOW PRN PRN Reason: Nausea And Vomiting Oxycodone/Acetaminophen (Percocet 5/325) 1 tab PO Q4HR PRN PRN Reason: Pain, Moderate (4-6) Ranitidine HCl (Zantac) 150 mg PO BID [facility] Vital Signs - 8 hr 06/21/18 05:08 Temperature 98.0 F Pulse Rate 72 Respiratory Rate 16 Blood Pressure 99/50 L Pulse Oximetry 93 MDM - Abdominal Pain <Carolina Thompson PA-C - Last Filed: 06/20/18 21:57> Lab Data Attestation: I reviewed the patient's lab results. Result diagrams: 06/20/18 13:50 06/20/18 13:50 Lab Results 06/20/18 06/20/18 06/20/18 Range/Units 13:50 13:50 13:50 WBC 13.8 H (4.5-11.0) X10^3/uL RBC 4.92 (4.0-5.2) X10^6/uL Hgb 14.9 (12.0-16.0) g/dL Hct 43.0 (36-46) % MCV 87.4 (80-100) fL MCH 30.2 (26-34) PG MCHC 34.6 (30-36) % RDW 13.6 (11.6-14.8) % Plt Count 306 (150-400) X10^3/uL Neut % (Auto) 87.8 H (50-75) % Lymph % (Auto) 7.6 L (25-40) % Roane % (Auto) 4.1 (3-14) % Eos % (Auto) 0.1 L (2-4) % Baso % (Auto) 0.4 (0-2) % Neut # (Auto) 01169 H (2610-2353) /uL Lymph # (Auto) 1100 (4335-0435) /uL Roane # (Auto) 600 (0-900) /uL Eos # (Auto) 0 (0-450) /uL Baso # (Auto) 100 (0-100) /uL PT 11.1 (10.1-12.7) SECONDS INR 1.0 (0.9-1.3) APTT 34 (26.4-36.2) SECONDS Sodium 137 (137-145) mmol/L Potassium 3.7 (3.4-5.1) mmol/L Chloride 102 (98-107) mmol/L Carbon Dioxide 26 (22-32) mmol/L BUN 17 (7-17) mg/dL Creatinine 0.60 (0.52-1.04) mg/dL Estimated GFR > 60.0 (>60) mL/min BUN/Creatinine Ratio 28.3 H (6-22) Glucose 108 H (70-100) mg/dL Calcium 9.8 (8.4-10.2) mg/dL Total Bilirubin 0.8 (0.2-1.3) mg/dL AST 28 (14-36) IU/L ALT 31 (9-52) IU/L Alkaline Phosphatase 135 H (38-126) U/L C-Reactive Protein (<1.0) mg/dL Total Protein 8.2 (6.3-8.2) g/dL Albumin 4.7 (3.5-5.0) g/dL Globulin 3.5 (1.7-4.1) g/dL Albumin/Globulin Ratio 1.3 (1.0-2.8) Lipase 90 (23-300) U/L 06/20/18 Range/Units 13:50 WBC (4.5-11.0) X10^3/uL RBC (4.0-5.2) X10^6/uL Hgb (12.0-16.0) g/dL Hct (36-46) % MCV (80-100) fL MCH (26-34) PG MCHC (30-36) % RDW (11.6-14.8) % Plt Count (150-400) X10^3/uL Neut % (Auto) (50-75) % Lymph % (Auto) (25-40) % Roane % (Auto) (3-14) % Eos % (Auto) (2-4) % Baso % (Auto) (0-2) % Neut # (Auto) (5019-6738) /uL Lymph # (Auto) (6630-0972) /uL Roane # (Auto) (0-900) /uL Eos # (Auto) (0-450) /uL Baso # (Auto) (0-100) /uL PT (10.1-12.7) SECONDS INR (0.9-1.3) APTT (26.4-36.2) SECONDS Sodium (137-145) mmol/L Potassium (3.4-5.1) mmol/L Chloride (98-107) mmol/L Carbon Dioxide (22-32) mmol/L BUN (7-17) mg/dL Creatinine (0.52-1.04) mg/dL Estimated GFR (>60) mL/min BUN/Creatinine Ratio (6-22) Glucose (70-100) mg/dL Calcium (8.4-10.2) mg/dL Total Bilirubin (0.2-1.3) mg/dL AST (14-36) IU/L ALT (9-52) IU/L Alkaline Phosphatase (38-126) U/L C-Reactive Protein 0.8 (<1.0) mg/dL Total Protein (6.3-8.2) g/dL Albumin (3.5-5.0) g/dL Globulin (1.7-4.1) g/dL Albumin/Globulin Ratio (1.0-2.8) Lipase (23-300) U/L Imaging Data CT scan - abdomen: Radiologist's impression: 18 Carolina Thompson PA-C Find Patient Imaging Sebas Mendoza 53 F 1965 ACTIVITY DATE EXAM STATUS AUTHOR 06/20/18 14:[address] [address] [address] Scan Report Signed Patient: Sebas Mendoza RMR#: [id number] : 1965Acct:[id number] Age/Sex: 53 / FDate of Service: 06/20/18 Loc: ED Accession Number: [id number] Procedure: CT abdomen pelvis w con Ordering Provider: Carolina Thompson P.A-C PROCEDURE: CT ABDOMEN PELVIS W CON INDICATIONS: midline, right lower quad pain, nausea. TECHNIQUE: After the administration of intravenous contrast, 5 mm thick sections acquired from the diaphragm to the symphysis. 5 mm coronal and sagittal reformats were acquired. For radiation dose reduction, the following was used: automated exposure control, adjustment of mA and/or kV according to patient size. COMPARISON: [facility] [place], CT, CT ABDOMEN PELVIS W CON, 12/07/2017, 10:25. FINDINGS: Image quality: Excellent. ABDOMEN: Lung bases: Lung bases are clear. Heart size is normal. Solid organs: Liver is normal in size and enhancement. Mild hepatic steatosis is seen. Gallbladder is within normal limits. Biliary system is non dilated. Pancreas enhances normally. Spleen is normal in size and enhancement. No adrenal nodules. Kidneys demonstrate normal size and enhancement, without hydronephrosis. Peritoneum and bowel: There is no evidence of bowel obstruction. Appendix is visualized in right lower quadrant abdomen and is enlarged in size measures up to 12 mm in diameter proximally. Multiple appendicoliths are seen including 8mm stone in proximal appendiceal lumen. There is diffuse appendiceal wall thickening and periappendiceal fat stranding consistent with acute appendicitis. No abscess collection. No evidence of perforation. No other area of abnormal bowel wall thickening. No free fluid or free air. Nodes and vessels: No retroperitoneal or mesenteric adenopathy by size criteria. Aorta and inferior vena cava are normal in size. Miscellaneous: No ventral hernias. PELVIS: Genitourinary: Bladder wall thickness is normal. Miscellaneous: No inguinal hernias or adenopathy. Bones: No suspicious bony lesions. No vertebral body compression fractures. IMPRESSION: 1. Finding is consistent with acute appendicitis with a numerous appendicoliths. No evidence of perforation. No bowel obstruction, free fluid or free air. 2. No renal stone or hydronephrosis. Dictated by: Jeff Cha M.D. on 06/20/2018 at 14:49 Approved by: Jeff Cha M.D. on 06/20/2018 at 14:51 ECG Data Attestation: I personally reviewed and interpreted this ECG as follows: (Sinus bradycardia with rate 55, normal axis) <Keegan Shields DO - Last Filed: 06/21/18 07:04> Lab Data Lab Results 0406/20/18 06/20/18 Range/Units 13:50 13:50 13:50 WBC 13.8 H (4.5-11.0) X10^3/uL RBC 4.92 (4.0-5.2) X10^6/uL Hgb 14.9 (12.0-16.0) g/dL Hct 43.0 (36-46) % MCV 87.4 (80-100) fL MCH 30.2 (26-34) PG MCHC 34.6 (30-36) % RDW 13.6 (11.6-14.8) % Plt Count 306 (150-400) X10^3/uL Neut % (Auto) 87.8 H (50-75) % Lymph % (Auto) 7.6 L (25-40) % Roane % (Auto) 4.1 (3-14) % Eos % (Auto) 0.1 L (2-4) % Baso % (Auto) 0.4 (0-2) % Neut # (Auto) 68432 H (1555-8193) /uL Lymph # (Auto) 1100 (3462-4313) /uL Roane # (Auto) 600 (0-900) /uL Eos # (Auto) 0 (0-450) /uL Baso # (Auto) 100 (0-100) /uL PT 11.1 (10.1-12.7) SECONDS INR 1.0 (0.9-1.3) APTT 34 (26.4-36.2) SECONDS Sodium 137 (137-145) mmol/L Potassium 3.7 (3.4-5.1) mmol/L Chloride 102 (98-107) mmol/L Carbon Dioxide 26 (22-32) mmol/L BUN 17 (7-17) mg/dL Creatinine 0.60 (0.52-1.04) mg/dL Estimated GFR > 60.0 (>60) mL/min BUN/Creatinine Ratio 28.3 H (6-22) Glucose 108 H (70-100) mg/dL Calcium 9.8 (8.4-10.2) mg/dL Total Bilirubin 0.8 (0.2-1.3) mg/dL AST 28 (14-36) IU/L ALT 31 (9-52) IU/L Alkaline Phosphatase 135 H (38-126) U/L C-Reactive Protein (<1.0) mg/dL Total Protein 8.2 (6.3-8.2) g/dL Albumin 4.7 (3.5-5.0) g/dL Globulin 3.5 (1.7-4.1) g/dL Albumin/Globulin Ratio 1.3 (1.0-2.8) Lipase 90 (23-300) U/L 06/20/18 Range/Units 13:50 WBC (4.5-11.0) X10^3/uL RBC (4.0-5.2) X10^6/uL Hgb (12.0-16.0) g/dL Hct (36-46) % MCV (80-100) fL MCH (26-34) PG MCHC (30-36) % RDW (11.6-14.8) % Plt Count (150-400) X10^3/uL Neut % (Auto) (50-75) % Lymph % (Auto) (25-40) % Roane % (Auto) (3-14) % Eos % (Auto) (2-4) % Baso % (Auto) (0-2) % Neut # (Auto) (6417-5844) /uL Lymph # (Auto) (9580-3508) /uL Roane # (Auto) (0-900) /uL Eos # (Auto) (0-450) /uL Baso # (Auto) (0-100) /uL PT (10.1-12.7) SECONDS INR (0.9-1.3) APTT (26.4-36.2) SECONDS Sodium (137-145) mmol/L Potassium (3.4-5.1) mmol/L Chloride (98-107) mmol/L Carbon Dioxide (22-32) mmol/L BUN (7-17) mg/dL Creatinine (0.52-1.04) mg/dL Estimated GFR (>60) mL/min BUN/Creatinine Ratio (6-22) Glucose (70-100) mg/dL Calcium (8.4-10.2) mg/dL Total Bilirubin (0.2-1.3) mg/dL AST (14-36) IU/L ALT (9-52) IU/L Alkaline Phosphatase (38-126) U/L C-Reactive Protein 0.8 (<1.0) mg/dL Total Protein (6.3-8.2) g/dL Albumin (3.5-5.0) g/dL Globulin (1.7-4.1) g/dL Albumin/Globulin Ratio (1.0-2.8) Lipase (23-300) U/L Discharge Plan Departure Patient Disposition: Admitted As Inpatient Clinical Impression: Appendicitis Qualifiers: Appendicitis type: acute appendicitis Acute appendicitis type: unspecified acute appendicitis type Qualified Code(s): K35.80 - Unspecified acute appendicitis Discharge Date/Time: 06/20/18 15:45 Interventions: ED Discharge Assessment Last Done: 06/20/18 15:45 Admit Date/Time: 06/20/18 15:27 Admit Provider: Oliver Sherman <Keegan Shields DO - Last Filed: 06/21/18 07:04> Cosign ED Attending Raul Attestation: I was available for consultation during this patient's emergency department encounter
--- NOTE | 2018-06-20 14:29 | DI.CT.S_ITS ---
PROCEDURE: CT ABDOMEN PELVIS W CON INDICATIONS: midline, right lower quad pain, nausea. TECHNIQUE: After the administration of intravenous contrast, 5 mm thick sections acquired from the diaphragm to the symphysis. 5 mm coronal and sagittal reformats were acquired. For radiation dose reduction, the following was used: automated exposure control, adjustment of mA and/or kV according to patient size. COMPARISON: [facility], CT, CT ABDOMEN PELVIS W CON, 12/07/2017, 10:25. FINDINGS: Image quality: Excellent. ABDOMEN: Lung bases: Lung bases are clear. Heart size is normal. Solid organs: Liver is normal in size and enhancement. Mild hepatic steatosis is seen. Gallbladder is within normal limits. Biliary system is non dilated. Pancreas enhances normally. Spleen is normal in size and enhancement. No adrenal nodules. Kidneys demonstrate normal size and enhancement, without hydronephrosis. Peritoneum and bowel: There is no evidence of bowel obstruction. Appendix is visualized in right lower quadrant abdomen and is enlarged in size measures up to 12 mm in diameter proximally. Multiple appendicoliths are seen including 8mm stone in proximal appendiceal lumen. There is diffuse appendiceal wall thickening and periappendiceal fat stranding consistent with acute appendicitis. No abscess collection. No evidence of perforation. No other area of abnormal bowel wall thickening. No free fluid or free air. Nodes and vessels: No retroperitoneal or mesenteric adenopathy by size criteria. Aorta and inferior vena cava are normal in size. Miscellaneous: No ventral hernias. PELVIS: Genitourinary: Bladder wall thickness is normal. Miscellaneous: No inguinal hernias or adenopathy. Bones: No suspicious bony lesions. No vertebral body compression fractures. IMPRESSION: 1. Finding is consistent with acute appendicitis with a numerous appendicoliths. No evidence of perforation. No bowel obstruction, free fluid or free air. 2. No renal stone or hydronephrosis. Dictated by: Jeff Cha M.D. on 06/20/2018 at 14:49 Approved by: Jeff Cha M.D. on 06/20/2018 at 14:51
[2018-06-20] MEDS: SODIUM CHLORIDE 0.9% 1,000 ML 1000 ML IV (14:42)
[2018-06-20] MEDS: KETOROLAC 60 MG/2 ML VIAL 30 MG IV (14:43)
[2018-06-20] MEDS: HYDROMORPHONE 1 MG INJ IV (14:43)
[2018-06-20] MEDS: ONDANSETRON 4 MG/2 ML INJ IV (14:43)
--- NOTE | 2018-06-20 14:48 | PC.NURSE ---
intermittently pt rubbing left abdomin due to pain, noted mouth dryness. eyes closed due to pain. medicated for comfort.
[2018-06-20 14:57] LABS: C-Reactive Protein Quant 0.8 mg/dL (<1.0)
--- NOTE | 2018-06-20 15:17 | PC.NURSE ---
pt reports woke up with lower abdominal pain, with nausea. felt like have to go to the bathroom, went to work, and gotten worsen. unable to sleep due to pain. last solid meal yesterday at 5pm, had candybar at 8am. sips of water. normal bm today.
[2018-06-20] MEDS: CEFTRIAXONE 2 GM/50 ML FROZ.PIGGY IV (15:48)
[2018-06-20] MEDS: LACTATED RINGERS 1,000 ML 42 ML IV ×2 (15:49→17:12)
--- NOTE | 2018-06-20 15:49 | PM.HP.1 ---
History of Present Illness Date Patient Seen: 06/20/18 Time Patient Seen: 15:50 Chief complaint: ABD LOWER PAIN Narrative: 53-year-old white female patient developed mid abdominal pain right upper quadrant pain early this morning. The pain then migrated to the right lower quadrant of the abdomen. Patient's pain has been 10/10. She then presented to the emergency department here at [facility]. She has a slightly elevated white cell count. CT scan of the abdomen confirms acute uncomplicated appendicitis no abscess. Patient History Medical History Menopausal syndrome (Chronic) No pertinent family history (Chronic) Surgical History No pertinent past surgical history (Chronic) Social History Smoking Status: Current every day smoker alcohol intake: current (once monthly) Family & Social History Safety & Behavioral: Feels Safe in Current Yes Environment Been Physically Hurt or No Threatened By a Person Tobacco & Substance use: Smoking Status Current every day smoker alcohol intake current alcohol intake frequency holiday/special occasion Substance Use Type does not use Meds Home Medications Medication Instructions Recorded Confirmed Type estradiol 0.025 mg/24 hr weekly 1 patch TRANSDERMAL TU 09/14/17 06/20/18 History transdermal patch progesterone micronized 100 mg 100 mg PO QPM 09/14/17 06/20/18 History capsule calcium carbonate-vitamin D3 1 tab PO DAILY 06/20/18 06/20/18 History [Calcium 600 with Vitamin D3] magnesium 1 tab PO DAILY 06/20/18 06/20/18 History Allergies Allergy/AdvReac Type Severity Reaction Status Date / Time No Known Drug Allergies Allergy Unverified 09/14/17 12:40 Review of Systems Review of Systems All systems reviewed & are unremarkable except as noted in HPI and below Exam Vital Signs (past 8 hours): - 06/20/18 13:30 06/20/18 14:00 Temperature 97.5 F L Pulse Rate 67 62 Respiratory Rate 22 21 Blood Pressure 124/67 Blood Pressure [Right Arm] 130/62 Pulse Oximetry 100 100 Oxygen Delivery Method Room Air Narrative Exam Narrative: ears nose and throat are unremarkable lungs are clear with no rales or wheezes heart regular rhythm no murmur abdomen is tender in the right lower quadrant with guarding and rebound tenderness. No masses palpated the remaining physical is unremarkable. Objective Labs Result Diagrams: 06/20/18 13:50 06/20/18 13:50 Labs: Laboratory Results - last 24 hr 06/20/18 06/20/18 06/20/18 13:50 13:50 13:50 WBC 13.8 H RBC 4.92 Hgb 14.9 Hct 43.0 MCV 87.4 MCH 30.2 MCHC 34.6 RDW 13.6 Plt Count 306 Neut % (Auto) 87.8 H Lymph % (Auto) 7.6 L [place] % (Auto) 4.1 Eos % (Auto) 0.1 L Baso % (Auto) 0.4 Neut # (Auto) 54355 H Lymph # (Auto) 1100 [place] # (Auto) 600 Eos # (Auto) 0 Baso # (Auto) 100 PT 11.1 INR 1.0 APTT 34 Sodium 137 Potassium 3.7 Chloride 102 Carbon Dioxide 26 BUN 17 Creatinine 0.60 Estimated GFR > 60.0 BUN/Creatinine Ratio 28.3 H Glucose 108 H Calcium 9.8 Total Bilirubin 0.8 AST 28 ALT 31 Alkaline Phosphatase 135 H C-Reactive Protein Total Protein 8.2 Albumin 4.7 Globulin 3.5 Albumin/Globulin Ratio 1.3 Lipase 90 06/20/18 13:50 WBC RBC Hgb Hct MCV MCH MCHC RDW Plt Count Neut % (Auto) Lymph % (Auto) [place] % (Auto) Eos % (Auto) Baso % (Auto) Neut # (Auto) Lymph # (Auto) [place] # (Auto) Eos # (Auto) Baso # (Auto) PT INR APTT Sodium Potassium Chloride Carbon Dioxide BUN Creatinine Estimated GFR BUN/Creatinine Ratio Glucose Calcium Total Bilirubin AST ALT Alkaline Phosphatase C-Reactive Protein 0.8 Total Protein Albumin Globulin Albumin/Globulin Ratio Lipase Assessment & Plan Assessment & Plan narrative: Patient has CT scan evidence of acute appendicitis which is consistent with her physical exam and history. Plan is intravenous antibiotics now and urgent appendectomy. Patient understands the problem and the operation and agrees to the plan.
[2018-06-20] MEDS: SODIUM CHLORIDE IRRIG SOLUTION 1,000 ML, BACITRACIN 50,000 UNIT IRR (16:49)
[2018-06-20] MEDS: BUPIVACAINE 0.5% W/ EPI (PF) VIAL 30 ML INJ (16:52)
[2018-06-20] MEDS: NEOMYCIN/POLYMYXIN/BACITRA UD OINT 1 EACH TOP (17:05)
--- NOTE | 2018-06-20 17:13 | PM.OP.1 ---
Operative Date/Time/Diagnoses Date of procedure: 06/20/18 Time of procedure: 17:13 Pre-op diagnosis: Acute uncomplicated appendicitis Post-op diagnosis: same Procedure & Clinicians Procedure: Appendectomy Same procedure as scheduled: Yes Surgeon: Oliver Sherman Click Yes if Unassisted: Yes Anesthesia Type: General Operative Notes Findings: Patient had acute uncomplicated appendicitis not ruptured no abscess Closure Type: primary Specimen(s): other Estimated Blood Loss (mL): 50 Procedure in detail: Patient was given general endotracheal anesthetic prepped and draped in a sterile fashion exposure of the lower abdomen properly identified during surgical pause. Jimmy-Rajinder incision was made over McBurney's point the oblique muscles split in the great iron fashion to expose the peritoneum which was elevated and entered so as to avoid injury to the underlying structures. The cecum was rotated into the wound. The appendix was identified was acutely inflamed coated with fibrin but not ruptured and there was no abscess. The mesoappendix was divided between clamps the vessels ligated with 2 0 Vicryl there was excellent hemostasis the base the appendix was divided over a TA 30? staple line which was secure and intact the appendix less removed and cultured. The pelvis irrigated with copious saline containing bacitracin. There was no bleeding and no further signs of infection. The peritoneum closed with a running 2 0 Vicryl. The oblique fascia closed with 1. Monocryl. the subcu irrigated with bacitracin saline aspirated dry there is no bleeding. The skin rahel sterile dressings applied procedure was very well tolerated. Complications: none Condition: stable Disposition: PACU
[2018-06-20] MEDS: KETOROLAC 30 MG/ML VIAL IV (17:20)
--- NOTE | 2018-06-20 17:33 | SUR.PHASEI ---
Pt arrived awake, smiling. Coughed x1 and became teary, holding surgical site. C/o 8/10 abd pain, medicated by Dr. Espinoza x2. Verified ok to start toradol now with Dr. Hobbs and Dr. Espinoza. Pt reported pain decreasing to 5/10, still mildly teary. Dr. Lea notified pt received Toradol at 1445, verified ok to continue with ordered Toradol schedule.
[2018-06-20] MEDS: HYDROMORPHONE 2 MG INJ 1 MG IV (17:37)
--- NOTE | 2018-06-20 17:46 | SUR.PHASEI ---
Report called to Des.
--- NOTE | 2018-06-20 17:50 | SUR.PHASEI ---
Pt status update given to Dr. Espinoza
--- NOTE | 2018-06-20 18:14 | SUR.PHASEI ---
Pt transferred to the floor. VS stable. Drsg cdi. IV saline locked. Belongings bag in room.
--- NOTE | 2018-06-20 18:19 | SUR.PHASEI ---
Verified no abx ordered for patient with Dr. Hobbs. Eulalia notified.
[2018-06-20] MEDS: OXYCODONE/ACETAMINOPHEN 5/325 TABLET 1 TAB PO (20:03)
[2018-06-20] MEDS: MORPHINE 2 MG/ML INJ 1 MG IV (20:03)
[2018-06-20] MEDS: DEXTROSE 5%-0.45% NS 1,000 ML 100 ML IV (20:06)
[2018-06-21] MEDS: KETOROLAC 30 MG/ML VIAL IV ×2 (00:12→06:16)
[2018-06-21] MEDS: DEXTROSE 5%-0.45% NS 1,000 ML 100 ML IV (04:55)
[2018-06-21 05:08] VITALS: BP 99/50; PULSE 72; RESP 16; TEMP 36.7; O2SAT 93
[2018-06-21 08:23] VITALS: BP 98/57; PULSE 57; RESP 16; TEMP 36.4; O2SAT 96
[2018-06-21 08:45] VITALS: PULSE 66; O2SAT 96
--- NOTE | 2018-06-21 09:36 | P.PN_ITS ---
Subjective Date Patient Seen: 06/21/18 Time Patient Seen: 09:34 Interval history: Patient came to the emergency room was discovered to have acute uncomplicated appendicitis yesterday afternoon. She underwent an open appendectomy. She feels much better than preop. She is tolerating a diet with no nausea and vomiting. She would like to go home. Exam Vital Signs (past 8 hours): - 06/21/18 05:08 06/21/18 08:23 06/21/18 08:45 Temperature 98.0 F 97.6 F Pulse Rate 72 57 L 66 Respiratory Rate 16 16 Blood Pressure 99/50 L 98/57 L Pulse Oximetry 93 96 96 Oxygen Delivery Method Room Air Oxygen Flow Rate 0 Narrative Exam Narrative: Patient is afebrile Abdomen is soft with normal incisional discomfort. Dressing is dry and intact. Objective Labs Result Diagrams: 06/20/18 13:50 06/20/18 13:50 Labs: Laboratory Results - last 24 hr 06/20/18 06/20/18 06/20/18 13:50 13:50 13:50 WBC 13.8 H RBC 4.92 Hgb 14.9 Hct 43.0 MCV 87.4 MCH 30.2 MCHC 34.6 RDW 13.6 Plt Count 306 Neut % (Auto) 87.8 H Lymph % (Auto) 7.6 L [place] % (Auto) 4.1 Eos % (Auto) 0.1 L Baso % (Auto) 0.4 Neut # (Auto) 80186 H Lymph # (Auto) 1100 [place] # (Auto) 600 Eos # (Auto) 0 Baso # (Auto) 100 PT 11.1 INR 1.0 APTT 34 Sodium 137 Potassium 3.7 Chloride 102 Carbon Dioxide 26 BUN 17 Creatinine 0.60 Estimated GFR > 60.0 BUN/Creatinine Ratio 28.3 H Glucose 108 H Calcium 9.8 Total Bilirubin 0.8 AST 28 ALT 31 Alkaline Phosphatase 135 H C-Reactive Protein Total Protein 8.2 Albumin 4.7 Globulin 3.5 Albumin/Globulin Ratio 1.3 Lipase 90 06/20/18 13:50 WBC RBC Hgb Hct MCV MCH MCHC RDW Plt Count Neut % (Auto) Lymph % (Auto) [place] % (Auto) Eos % (Auto) Baso % (Auto) Neut # (Auto) Lymph # (Auto) [place] # (Auto) Eos # (Auto) Baso # (Auto) PT INR APTT Sodium Potassium Chloride Carbon Dioxide BUN Creatinine Estimated GFR BUN/Creatinine Ratio Glucose Calcium Total Bilirubin AST ALT Alkaline Phosphatase C-Reactive Protein 0.8 Total Protein Albumin Globulin Albumin/Globulin Ratio Lipase Assessment & Plan Assessment & Plan narrative: Patient has recovered nicely from an appendectomy for uncomplicated appendicitis. She is discharged today. She was seen back in the clinic in a week to have her rahel removed. no prescriptions given. Quality VTE Deep Vein Thrombosis/Pulmonary Embolism Present on Admission: No
--- NOTE | 2018-06-21 09:36 | PM.DS.1 ---
History of Present Illness Chief complaint: ABD LOWER PAIN Narrative: 53-year-old white female patient developed mid abdominal pain right upper quadrant pain early this morning. The pain then migrated to the right lower quadrant of the abdomen. Patient's pain has been 10/10. She then presented to the emergency department here at [facility]. She has a slightly elevated white cell count. CT scan of the abdomen confirms acute uncomplicated appendicitis no abscess. Discharge Providers Date of admission: 06/20/18 15:27 Discharge Date: 06/21/18 Primary care physician: Wendi Melvin PA-C Discharge provider: Oliver Sherman MD Summary Discharge Diagnosis: Acute uncomplicated appendicitis Hospital Course: Patient came to the emergency room was discovered to have acute uncomplicated appendicitis underwent an open appendectomy yesterday late afternoon. She feels well this morning has recovered nicely is tolerating a diet with normal GI function. Dressing is dry and intact she has minimal discomfort and will be discharged on no medications other than her home medications which are reviewed and renewed I have strongly urged the patient to stop smoking. Status at Discharge Cognitive/behavioral status at discharge: oriented Functional status at discharge: independent ambulation Overall status at discharge: patient is back to baseline Time Spent with Patient Less than 30 minutes Exam Vital Signs (past 8 hours): - 06/21/18 05:08 06/21/18 08:23 06/21/18 08:45 Temperature 98.0 F 97.6 F Pulse Rate 72 57 L 66 Respiratory Rate 16 16 Blood Pressure 99/50 L 98/57 L Pulse Oximetry 93 96 96 Oxygen Delivery Method Room Air Oxygen Flow Rate 0 Objective Labs Result Diagrams: 06/20/18 13:50 06/20/18 13:50 Labs: Laboratory Results - last 24 hr 06/20/18 06/20/18 06/20/18 13:50 13:50 13:50 WBC 13.8 H RBC 4.92 Hgb 14.9 Hct 43.0 MCV 87.4 MCH 30.2 MCHC 34.6 RDW 13.6 Plt Count 306 Neut % (Auto) 87.8 H Lymph % (Auto) 7.6 L [place] % (Auto) 4.1 Eos % (Auto) 0.1 L Baso % (Auto) 0.4 Neut # (Auto) 94592 H Lymph # (Auto) 1100 [place] # (Auto) 600 Eos # (Auto) 0 Baso # (Auto) 100 PT 11.1 INR 1.0 APTT 34 Sodium 137 Potassium 3.7 Chloride 102 Carbon Dioxide 26 BUN 17 Creatinine 0.60 Estimated GFR > 60.0 BUN/Creatinine Ratio 28.3 H Glucose 108 H Calcium 9.8 Total Bilirubin 0.8 AST 28 ALT 31 Alkaline Phosphatase 135 H C-Reactive Protein Total Protein 8.2 Albumin 4.7 Globulin 3.5 Albumin/Globulin Ratio 1.3 Lipase 90 06/20/18 13:50 WBC RBC Hgb Hct MCV MCH MCHC RDW Plt Count Neut % (Auto) Lymph % (Auto) [place] % (Auto) Eos % (Auto) Baso % (Auto) Neut # (Auto) Lymph # (Auto) [place] # (Auto) Eos # (Auto) Baso # (Auto) PT INR APTT Sodium Potassium Chloride Carbon Dioxide BUN Creatinine Estimated GFR BUN/Creatinine Ratio Glucose Calcium Total Bilirubin AST ALT Alkaline Phosphatase C-Reactive Protein 0.8 Total Protein Albumin Globulin Albumin/Globulin Ratio Lipase Discharge Plan Discharge Plan Patient Disposition: Home Discharge Med Rec/Prescriptions Prescriptions: Continued estradiol 0.025 mg/24 hr patch weekly 1 patch Transdermal TU RF: 0 progesterone micronized 100 mg capsule 100 mg PO QPM RF: 0 Calcium 600 with Vitamin D3 600 mg(1,500mg) -400 unit Tablet,Chewable 1 tab PO DAILY RF: 0 magnesium 1 tab PO DAILY RF: 0 Follow up/Referrals: Wendi Melvin PA-C [Primary Care Provider] - Provider Discharge Instructions Diet: Diet as Tolerated Activity: No heavy lifting for several weeks. Other treatments: Have rahel removed in 1 week. Skin/Wound/Dressing Care Report to your healthcare provider any signs of infection, such as:: chills, fever, increased pain, unusual drainage and unusual redness Visit Report/Discharge Packet Instructions: DI for an Appendectomy Discharge Data Primary Care Provider: Wendi Melvin Attending Provider: Oliver Sherman Admit Date/Time: 06/20/18 15:27 Quality VTE Deep Vein Thrombosis/Pulmonary Embolism Present on Admission: No
--- NOTE | 2018-06-21 10:16 | PC.NURSE ---
Addendum entered by Niya Ferrer R.N. 06/21/18 11:07: Reviewed discharge summary packet with pt and her Art. No voiced concerns. Post op follow up appointment made for Dr. Sherman's office next week. Pt ambulating in room indep with steady gait. PIV removed. States has all belongings. Pt left unit via wheelchair at 1105 in no distress with [employer]. Original Note: Day Shift- Pt states is ready to go home this morning. present to drive her home. VSS, Minimal aching to RLQ abd. No prn's this morning. Voiding qs. PIV removed. Ambulated for 2 laps around [facility] with [employer]. Tolerated well. No other voiced concerns. RLQ abd dressing intact with small amount of serous drainage shadowing.
--- NOTE | 2018-06-21 16:01 | CM.DANOTE ---
DCP/continued: Reviewed chart. Patient is a 53yr old female admitted to [facility] under OBS status with abdominal pain. PCP listed is Wendi Melvin. Primary payor is 1)[facility]. COAL DELIVERER attempted to meet with patient today but patient had already discharged with no identified d/c planning needs. P: Home today. JAME Lozano Discharge Planning/Care Management CM Discharge Assessment Start: 06/21/18 15:59 Freq: Status: Active Protocol: Document 06/21/18 16:00 KJS (Rec: 06/21/18 16:01 [id number]) Discharge Planning Assessment Assigned Senior Quality Assurance Specialist JAME Lozano Contact Information Nestor Benz (friend) [phone] Advance Directives? Yes History Provided By Medical Record Prior Living Arrangements House Household Members spouse Type of transporation used prior to Drives own vehicle admit Independent with ADL's Yes Is patient alert and oriented? Yes Caregiver for Another No Barriers to Discharge No Discharge Plan Home Transportation Arrangement Transport to be provided by family/friend. Whiteboard Updated in Patient Room with No name and ext. # of Senior Quality Assurance Specialist Review Status In Process Please Provide Date Initial DC 06/21/18 Assessment Was Performed Next Review Type Continued Stay Review
== END 2018-06-21 11:05 | disposition home or self-care (01) ==
LOC: ED 15:25 → AC 15:27
PROVIDERS: Emergency Medicine; Admitting Provider Surgery; Emergency Provider Internal Medicine; PCP Physician Assistant; Visit Provider Surgery
PROC: (CPT 44950; principal; 2018-06-20 16:00)
DX: K35.80 Unspecified acute appendicitis (principal); R10.30 Lower abdominal pain, unspecified; F17.210 Nicotine dependence, cigarettes, uncomplicated
CPT/HCPCS: 44950; 74177; 80053; 83690; 85025; 85610; 85730; 86140; 87070; 87075; 87077; 87186; 87205; 93005; 93010; 96361; 96374; 96375; 99219; 99283; 99285; G0378; J0330; J0696; J1100; J1170; J1885; J2270; J2405; J2704; J3010; Q9967

== ENCOUNTER 2018-06-29 18:20 | Emergency (ER) | payer OTHER, SELFPAY ==
[2018-06-21 10:39] VITALS: BMI 27.4
[2018-06-29 18:33] VITALS: BP 94/62; PULSE 90; RESP 15; TEMP 37.1; O2SAT 96; BMI 25.0
[2018-06-29 19:24] LABS: Add Manual Diff / Slide Review NO; Basophils Absolute Auto 100 /uL (0-100); Basophils Percent Auto 0.7 % (0-2); Eosinophils Absolute Auto 100 /uL (0-450); Eosinophils Percent Auto 0.5 % (2-4); Hemoglobin 12.7 g/dL (12.0-16.0); Lymphocytes Absolute Auto 1700 /uL (1100-4500); Lymphocytes Percent Auto 13.1 % (25-40); Mean Corpuscular HGB Conc 33.5 % (30-36); Mean Corpuscular Hemoglobin 29.8 PG (26-34); Monocytes Absolute Auto 1400 /uL (0-900); Monocytes Percent Auto 10.4 % (3-14); Neutrophils Absolute Auto 9900 /uL (1500-7000); Neutrophils Percent Auto 75.3 % (50-75); Platelet Count 303 X10^3/uL (150-400); Red Blood Cell Count 4.27 X10^6/uL (4.0-5.2); Red Cell Distribution Width 13.1 % (11.6-14.8); White Blood Cell Count 13.2 X10^3/uL (4.5-11.0)
[2018-06-29 19:43] LABS: Alanine Aminotransferase 113 IU/L (9-52); Albumin 3.9 g/dL (3.5-5.0); Albumin Globulin Ratio 1.2 (1.0-2.8); Alkaline Phosphatase 246 U/L (38-126); Aspartate Aminotransferase 118 IU/L (14-36); BUN Creatinine Ratio 34.3 (6-22); Bilirubin Total 0.7 mg/dL (0.2-1.3); Blood Urea Nitrogen 24 mg/dL (7-17); Calcium 9.1 mg/dL (8.4-10.2); Carbon Dioxide 27 mmol/L (22-32); Chloride 97 mmol/L (98-107); Estimated Glomerular Filt Rate > 60.0 mL/min (>60); Globulin 3.2 g/dL (1.7-4.1); Glucose 184 mg/dL (70-100); HEMOLYSIS < 15 (0-50); Potassium 3.3 mmol/L (3.4-5.1); Sodium 136 mmol/L (137-145); Total Protein 7.1 g/dL (6.3-8.2)
[2018-06-29 19:48] VITALS: BP 107/58; PULSE 76; O2SAT 97
[2018-06-29] MEDS: ONDANSETRON 4 MG ODT SL (20:06)
[2018-06-29] MEDS: POTASSIUM CHLORIDE 20 MEQ/15 ML UDC 40 MEQ PO (20:06)
[2018-06-29] MEDS: HYDROCODONE/ACET 5/325 TABLET 1 TAB PO (20:06)
[2018-06-29 20:31] VITALS: BP 106/49; PULSE 75; RESP 15; TEMP 36.8; O2SAT 94
--- NOTE | 2018-06-29 20:54 | ED_ITS ---
HPI - Skin/Abscess/Foreign Bdy <FERNANDA LandinBC - Last Filed: 06/29/18 20:54> General Chief complaint: Skin/Abscess/Foreign Body Stated complaint: Wound site of appy, states infected Time Seen by Provider: 06/29/18 18:55 Source: patient and family Mode of arrival: ambulatory Limitations: no limitations History of Present Illness HPI narrative: The patient is a 53-year-old female with history of recent appendectomy who presents with her for concern of a postoperative infection. She had an appendectomy at this facility several days ago with Dr. Hobbs. She was seen at an outside clinic, started her on 500 of Keflex b.i.d.. This started yesterday and she has had 1 dose. Today she noted increased drainage from her right lower quadrant incision. She denies any systemic symptoms including fever nausea vomiting diarrhea. She states she took ibuprofen earlier today. She does note 1 cm spreading redness from the incision site. Related Data Home Medications Medication Instructions Recorded Confirmed estradiol 0.025 mg/24 hr weekly 1 patch TRANSDERMAL TU 09/14/17 06/27/18 transdermal patch progesterone micronized 100 mg 100 mg PO QPM 09/14/17 06/27/18 capsule Calcium 600 with Vitamin D3 1 tab PO DAILY 06/20/18 06/27/18 magnesium 1 tab PO DAILY 06/20/18 06/27/18 Previous Rx's Medication Instructions Recorded hydrocodone-acetaminophen 1 tab PO Q4-6H PRN #10 tab 06/29/18 ondansetron HCl 4 mg PO TID-QID PRN #20 tab 06/29/18 Allergies Allergy/AdvReac Type Severity Reaction Status Date / Time No Known Drug Allergies Allergy Verified 06/29/18 18:33 Review of Systems <MIL Landin - Last Filed: 06/29/18 20:54> Review of Systems GENERAL: Denies chills, fatigue, malaise, fever, sweats. HEENT: Denies sinus pain, ear pain, sore throat, difficulty swallowing, dizziness. RESPIRATORY: Denies dyspnea, cough, wheezing, hemoptysis, sputum. CARDIOVASCULAR: Denies chest pain, palpitations, orthopnea, edema, GASTROINTESTINAL: See HPI : Denies dysuria, frequency, incontinence, hematuria, urinary retention. MUSCULOSKELETAL: denies weakness, joint pain, or bony pain SKIN: See HPI NEUROLOGIC: Denies weakness, headache, numbness, change in speech, confusion, seizures, incoordination. PSYCHIATRIC: No concerning psychosocial issues. 12 point review of systems is negative except for those stated above PFSH <MIL Landin - Last Filed: 06/29/18 20:54> Medical History Menopausal syndrome (Chronic) No pertinent family history (Chronic) Surgical History (Updated 06/29/18 @ 20:52 by MIL Landin) S/P appendectomy (Acute) No pertinent past surgical history (Chronic) Social History household members: spouse Smoking Status: Current every day smoker alcohol intake: current Social History household members: spouse Smoking Status: Current every day smoker alcohol intake: current Exam <MIL Landin - Last Filed: 06/29/18 20:54> Narrative Exam Narrative: GENERAL: This is a well-nourished, well-developed patient, in mild distress. HEAD: Atraumatic. Normocephalic. No temporal or scalp tenderness. EYES: Pupils equal round and reactive. Extraocular motions intact. No scleral icterus. No injection or drainage. ENT: Nose without bleeding, purulent drainage or septal hematoma. Throat without erythema, tonsillar hypertrophy or exudate. Uvula midline. Airway patent. NECK: Trachea midline. No JVD or lymphadenopathy. Supple, nontender, no meningeal signs. CARDIOVASCULAR: Regular rate and rhythm without murmurs, gallops, or rubs. RESPIRATORY: Clear to auscultation. Breath sounds equal bilaterally. No wheezes, rales, or rhonchi. GASTROINTESTINAL: Abdomen soft, non-tender, nondistended. No hepato- splenomegaly, or palpable masses. No guarding. EXTREMITIES: No clubbing, cyanosis, or edema. No joint tenderness, effusion, or edema noted. BACK: Nontender without deformity or crepitance. No flank tenderness. NEURO: AOx3. SKIN: Right lower quadrant abdominal incision with purulence drainage, 2 cm erythema surrounding Initial Vital Signs Initial Vital Signs: Vital Signs Temperature 98.7 F 06/29/18 18:33 Pulse Rate 90 06/29/18 18:33 Respiratory Rate 15 06/29/18 18:33 Blood Pressure 94/62 06/29/18 18:33 Pulse Oximetry 96 06/29/18 18:33 <DO Mary Ann Duran Last Filed: 06/29/18 21:11> Initial Vital Signs Initial Vital Signs: Vital Signs Temperature 98.7 F 06/29/18 18:33 Pulse Rate 90 06/29/18 18:33 Respiratory Rate 15 06/29/18 18:33 Blood Pressure 94/62 06/29/18 18:33 Pulse Oximetry 96 06/29/18 18:33 Course <FERNANDA LandinBC - Last Filed: 06/29/18 20:54> Orders Ordered: ED Orders 06/29/18 19:19 Complete Blood Count AUTO DIFF Stat Comprehensive Metabolic Panel Stat 06/29/18 19:30 Wound Culture and Gram Stain Stat Discontinued Medications Hydrocodone Bitart/Acetaminophen ([place] 5/325) 1 tab PO NOW ONE Stop: 06/29/18 19:52 Last Admin: 06/29/18 20:06 Dose: 1 tab Ondansetron HCl (Zofran Odt) 4 mg SL NOW ONE Stop: 06/29/18 19:52 Last Admin: 06/29/18 20:06 Dose: 4 mg Potassium Chloride (Potassium Chloride) 40 meq PO NOW ONE Stop: 06/29/18 19:52 Last Admin: 06/29/18 20:06 Dose: 40 meq Vital Signs - 8 hr 06/29/18 18:33 06/29/18 19:48 06/29/18 20:31 Temperature 98.7 F 98.2 F Pulse Rate 90 76 75 Respiratory Rate 15 15 Blood Pressure 94/62 Blood Pressure [Right Arm] 107/58 L 106/49 L Pulse Oximetry 96 97 94 <DO Mary Ann Duran Last Filed: 06/29/18 21:11> Orders Ordered: ED Orders 06/29/18 19:19 Complete Blood Count AUTO DIFF Stat Comprehensive Metabolic Panel Stat 06/29/18 19:30 Wound Culture and Gram Stain Stat Discontinued Medications Hydrocodone Bitart/Acetaminophen ([place] 5/325) 1 tab PO NOW ONE Stop: 06/29/18 19:52 Last Admin: 06/29/18 20:06 Dose: 1 tab Ondansetron HCl (Zofran Odt) 4 mg SL NOW ONE Stop: 06/29/18 19:52 Last Admin: 06/29/18 20:06 Dose: 4 mg Potassium Chloride (Potassium Chloride) 40 meq PO NOW ONE Stop: 06/29/18 19:52 Last Admin: 06/29/18 20:06 Dose: 40 meq Vital Signs - 8 hr 06/29/18 18:33 06/29/18 19:48 06/29/18 20:31 Temperature 98.7 F 98.2 F Pulse Rate 90 76 75 Respiratory Rate 15 15 Blood Pressure 94/62 Blood Pressure [Right Arm] 107/58 L 106/49 L Pulse Oximetry 96 97 94 MDM - Skin/Abscess/Foreign Bdy <MARIA C Landin-BC - Last Filed: 06/29/18 20:54> Lab Data Result diagrams: 06/29/18 19:19 06/29/18 19:19 Lab Results 06/29/18 06/29/18 Range/Units 19:19 19:19 WBC 13.2 H (4.5-11.0) X10^3/uL RBC 4.27 (4.0-5.2) X10^6/uL Hgb 12.7 (12.0-16.0) g/dL Hct 38.0 (36-46) % MCV 89.0 (80-100) fL MCH 29.8 (26-34) PG MCHC 33.5 (30-36) % RDW 13.1 (11.6-14.8) % Plt Count 303 (150-400) X10^3/uL Neut % (Auto) 75.3 H (50-75) % Lymph % (Auto) 13.1 L (25-40) % Dyer % (Auto) 10.4 (3-14) % Eos % (Auto) 0.5 L (2-4) % Baso % (Auto) 0.7 (0-2) % Neut # (Auto) 9900 H (3463-3878) /uL Lymph # (Auto) 1700 (2388-0443) /uL Dyer # (Auto) 1400 H (0-900) /uL Eos # (Auto) 100 (0-450) /uL Baso # (Auto) 100 (0-100) /uL Sodium 136 L (137-145) mmol/L Potassium 3.3 L (3.4-5.1) mmol/L Chloride 97 L (98-107) mmol/L Carbon Dioxide 27 (22-32) mmol/L BUN 24 H (7-17) mg/dL Creatinine 0.70 (0.52-1.04) mg/dL Estimated GFR > 60.0 (>60) mL/min BUN/Creatinine Ratio 34.3 H (6-22) Glucose 184 H (70-100) mg/dL Calcium 9.1 (8.4-10.2) mg/dL Total Bilirubin 0.7 (0.2-1.3) mg/dL AST 118 H (14-36) IU/L ALT 113 H (9-52) IU/L Alkaline Phosphatase 246 H D (38-126) U/L Total Protein 7.1 (6.3-8.2) g/dL Albumin 3.9 (3.5-5.0) g/dL Globulin 3.2 (1.7-4.1) g/dL Albumin/Globulin Ratio 1.2 (1.0-2.8) MDM Narrative Medical decision making narrative: Given the patient's postoperative status and concern for infection, I spoke with Dr. Wright. Dr. Wright came down to evaluate the patient, and scheduled her for clinic at 3:00 p.m. tomorrow. The patient was treated with pain medication, nausea medication and potassium in the emergency department. I did do basic labs, including a low potassium level. I did note that the patient's LFTs are slightly elevated in the patient plans on following up with her primary care provider. She was hemodynamically stable throughout her stay in the emergency department. She states understanding of follow-up with Dr. Wright tomorrow. Encouraged her to come back to the emergency department with any acute concerns. <Keegan Sihelds, - Last Filed: 06/29/18 21:11> Lab Data Lab Results 06/29/18 06/29/18 Range/Units 19:19 19:19 WBC 13.2 H (4.5-11.0) X10^3/uL RBC 4.27 (4.0-5.2) X10^6/uL Hgb 12.7 (12.0-16.0) g/dL Hct 38.0 (36-46) % MCV 89.0 (80-100) fL MCH 29.8 (26-34) PG MCHC 33.5 (30-36) % RDW 13.1 (11.6-14.8) % Plt Count 303 (150-400) X10^3/uL Neut % (Auto) 75.3 H (50-75) % Lymph % (Auto) 13.1 L (25-40) % Dyer % (Auto) 10.4 (3-14) % Eos % (Auto) 0.5 L (2-4) % Baso % (Auto) 0.7 (0-2) % Neut # (Auto) 9900 H (8801-4935) /uL Lymph # (Auto) 1700 (6567-9402) /uL Dyer # (Auto) 1400 H (0-900) /uL Eos # (Auto) 100 (0-450) /uL Baso # (Auto) 100 (0-100) /uL Sodium 136 L (137-145) mmol/L Potassium 3.3 L (3.4-5.1) mmol/L Chloride 97 L (98-107) mmol/L Carbon Dioxide 27 (22-32) mmol/L BUN 24 H (7-17) mg/dL Creatinine 0.70 (0.52-1.04) mg/dL Estimated GFR > 60.0 (>60) mL/min BUN/Creatinine Ratio 34.3 H (6-22) Glucose 184 H (70-100) mg/dL Calcium 9.1 (8.4-10.2) mg/dL Total Bilirubin 0.7 (0.2-1.3) mg/dL AST 118 H (14-36) IU/L ALT 113 H (9-52) IU/L Alkaline Phosphatase 246 H D (38-126) U/L Total Protein 7.1 (6.3-8.2) g/dL Albumin 3.9 (3.5-5.0) g/dL Globulin 3.2 (1.7-4.1) g/dL Albumin/Globulin Ratio 1.2 (1.0-2.8) Discharge Plan Departure Patient Disposition: Home Clinical Impression: Post-operative infection Qualifiers: Encounter type: initial encounter Postoperative infection type: unspecified type Qualified Code(s): T81.40XA - Infection following a procedure, unspecified, initial encounter Discharge Date/Time: 06/29/18 20:47 Interventions: ED Discharge Assessment Last Done: 06/29/18 20:45 Instructions: DI for Wound Infection, Surgical Site Infection Activity Restrictions/Additional Instructions: Please follow-up with Dr. Wright tomorrow at 3:00 p.m.. He is expecting you in his office then. I have given his contact information. I am also giving you a prescription of pain medication as well as nausea medication. The pain medication can be constipating and sedating. Please follow-up with the surgeon as planned. Please also follow up with your primary care provider. Please come back to the emergency department for any acute concerns. Prescriptions: New hydrocodone-acetaminophen 5-325 mg tablet 1 tab PO Q4-6H PRN (Reason: pain) Qty: 10 RF: 0 ondansetron HCl 4 mg tablet 4 mg PO TID-QID PRN (Reason: nausea and vomiting) Qty: 20 RF: 0 No Action estradiol 0.025 mg/24 hr patch weekly 1 patch Transdermal TU RF: 0 progesterone micronized 100 mg capsule 100 mg PO QPM RF: 0 Calcium 600 with Vitamin D3 600 mg(1,500mg) -400 unit Tablet,Chewable 1 tab PO DAILY RF: 0 magnesium 1 tab PO DAILY RF: 0 Referrals: Alexy Wright MD [Physician] - Wendi Melvin PA-C [Primary Care Provider] - <Keegan Shields DO - Last Filed: 06/29/18 21:11> Cosign ED Attending Raul Attestation: I was available for consultation during this patient's emergency department encounter
== END 2018-06-29 20:47 | disposition home or self-care (01) ==
PROVIDERS: Emergency Provider Nurse Practitioner Family; PCP Physician Assistant
DX: T81.40XA Infection following a procedure, unspecified, initial encounter (principal)
CPT/HCPCS: 80053; 85025; 87070; 87075; 87205; 99282; 99283

== ENCOUNTER → 2019-10-15 10:07 | Outpatient (CLI) | payer OTHER, SELFPAY ==
[2018-06-21 10:39] VITALS: BMI 27.4
[2019-10-16 12:53] LABS: COVID19 Sendout Not Detected (Not Detect)
== END ==
PROVIDERS: PCP Physician Assistant; Visit Provider Physician Assistant
DX: Z11.59 Encounter for screening for other viral diseases (principal)
CPT/HCPCS: 87635

== ENCOUNTER 2019-10-18 09:43 | Day surgery (SDC) | payer OTHER, SELFPAY ==
[2018-06-21 10:39] VITALS: BMI 27.4
[2019-10-18] VITALS (7 sets, daily range): BP systolic 97–110; BP diastolic 56–72; PULSE 63–88; RESP 11–16; TEMP 36–36.8; O2SAT 94–97; BMI 27.4
--- NOTE | 2019-10-18 | PATH_ITS ---
[facility] Accession Number: [id number] . 01 Material submitted: . PART A: colon - MULTIPLE BIOPSIES AT 25CM OF COLON PART B: colon - BIOPSY NEAR ANUS . 02 Diagnosis: A. Colon, Biopsies at 25 cm: Hyperplastic polyps. . B. Colon, Biopsy Near Anus: Hyperplastic colonic mucosa with features suggestive of mucosal prolapse. Negative for dysplasia and malignancy. MRV 10/22/2019 1306 Local . 02 Electronically signed: . Emily Canas MD, Pathologist NPI- [id number] . 01 Gross description: . Part A: MULTIPLE BIOPSIES AT 25CM OF COLON: Received in formalin are 4 fragment(s) of mckinley, soft tissue measuring 0.4 x 0.3 x 0.3 cm to 0.3 x 0.1 x 0.1 cm submitted entirely in 1 cassette(s) Part B: BIOPSY NEAR ANUS: Received in formalin are 2 fragment(s) of mckinley, soft tissue measuring 0.3 x 0.3 x 0.3 cm to 0.3 x 0.1 x 0.1 cm submitted entirely in 1 cassette(s) /QBJ 10/19/2019 0744 Local . 02 Pathologist provided ICD-10: K63.5 . 02 CPT . 251105, [id number] Performed at: 01 [facility] [address] [facility], [place], [place] [id number] MD Eliezer Rangel MD Phone: [phone] Performed at: 02 [facility] [address] [place], [place] [id number] MD Emily Canas MD Phone: [phone]
[2019-10-18] MEDS: LACTATED RINGERS 1,000 ML 42 ML IV (10:17)
--- NOTE | 2019-10-18 10:21 | PM.HP.1 ---
History of Present Illness History of Present Illness Date Patient Seen: 10/18/19 Time Patient Seen: 10:04 Chief complaint: SDC Narrative: The patient is here for screening colonoscopy. She does not have a family history of colon cancer. Last exam was about 12 years ago. Patient History Medical History Menopausal syndrome (Chronic) No pertinent family history (Chronic) Surgical History No pertinent past surgical history (Chronic) S/P appendectomy (Acute) Family & Social History Social History: household members spouse Tobacco & Substance use: Tobacco type cigarettes Smoking Status Current every day smoker Smoking packs per day 0.5 alcohol intake current alcohol intake frequency holiday/special occasion Substance Use Type does not use Meds Home Medications and Allergies Home Medications Medication Instructions Recorded Confirmed Type estradiol 0.025 mg/24 hr weekly 1 patch TRANSDERMAL TU 09/14/17 10/18/19 History transdermal patch progesterone micronized 100 mg 100 mg PO QPM 09/14/17 10/18/19 History capsule Calcium 600 with Vitamin D3 1 tab PO DAILY 06/20/18 10/18/19 History magnesium 1 tab PO DAILY 06/20/18 10/18/19 History Allergies Allergy/AdvReac Type Severity Reaction Status Date / Time No Known Drug Allergies Allergy Verified 10/18/19 10:14 Review of Systems Review of Systems ROS: Yes All systems reviewed with the patient and are negative except as otherwise documented Exam Vital Signs (past 8 hours): - 10/18/19 10:05 Temperature 98.2 F Pulse Rate 88 Respiratory Rate 16 Blood Pressure 108/72 Pulse Oximetry 97 Oxygen Delivery Method Room Air Narrative Exam Narrative: Pleasant cooperative patient no apparent distress. Lungs are clear to auscultation. No rales or rhonchi. Heart regular rate and rhythm no murmur gallop. Abdomen is soft nontender without mass. No obvious hernias. Patient is alert and oriented x3. Assessment & Plan Assessment & Plan narrative: The patient for a screening colonoscopy. I have discussed the procedure with them. Risks of bleeding, perforation which would necessitate major operation, failure to find remove all lesions, the potential tattoo were all discussed. All questions were answered. They wished to proceed.
--- NOTE | 2019-10-18 10:23 | PM.PREOP ---
Pre-operative Note COVID-19 COVID-19 status: Negative Result date/Date tested (Pos, Neg/Pending): 10/15/19 Interval Note History & Physical reviewed/Exam performed by Physician: Yes Changes to H&P: No
[2019-10-18] MEDS: fentaNYL 250 MCG/5 ML INJ IV (10:39)
[2019-10-18] MEDS: MIDAZOLAM 5 MG/5 ML VIAL IV (10:40)
--- NOTE | 2019-10-18 11:03 | P.OP.ENDO_ITS ---
Operative Date/Time/Diagnoses Date of procedure: 10/18/19 Time of procedure: 11:03 Pre-op diagnosis: Screening examination for colon cancer. Patient had a positive ColoGard test Post-op diagnosis: same (Small polyp like lesions seen. Sigmoid diverticulosis (occasional)) Procedure & Clinicians Study performed: Colonoscopy with cold biopsy Same procedure as scheduled: Yes Indications: Screening for colon cancer. Positive colic Garde test. Last colonoscopy was 12 years ago. Surgeon: Alexy Wright Procedure Notes SCOAP/Timeout: Performed Procedure in detail: The patient was placed in the left lateral decubitus pos ition and underwent IV sedation directed by the surgeon consisting of fentanyl and Versed. Digital exam was unremarkable. The scope was inserted and advanced through the rectum into the sigmoid, descending, transverse, and ascending colon. The patient was noted to have occasional diverticula in her sigmoid colon. There was some small raised areas in it about 25-30 cm from the anal verge. I could not manipulate the scope into a good position to biopsy the him on the way inside chose to do it on the way out. Pressure had to be applied to ultimately reach the cecum.. The cecum was reached identified by the ileocecal valve and the appendiceal opening. The ileocecal valve was successfully cannulated. The terminal ileum was normal in appearance. The scope was gradually brought out. The Polyps were found at 25-30 cm in were biopsied and removed. There were 3 of them. These were all very small flattened it lesions but the mucosa was slightly different than the surrounding mucosa.. The scope ultimately was retroflexed in the rectum. The appearance was remarkable for a small flat slightly irregular mucosal lesion which I biopsied and removed. There was no evidence of internal hemorrhoids. No other lesions were seen.. The scope was removed and the patient tolerated the procedure well. The prep was adequate. Scope withdrawal time: 9 minutes(13 total) Sedation minutes: 33 Findings: diverticulosis (Occasional diverticuli of the sigmoid colon) and polyp (Possible at 25 cm and near the anal verge. Await pathology.) Specimen(s): other (Biopsied lesions) Complications: none Post-procedure Recommendations: Colonscopy in 5 years (If the lesions are not neoplastic(adenomatous), then 10 years would be more appropriate.) Follow up: as needed Disposition: PACU
== END 2019-10-18 11:55 | disposition home or self-care (01) ==
PROVIDERS: PCP Student in an Organized Health Care Education/Training Program; Referring Provider Student in an Organized Health Care Education/Training Program; Visit Provider Specialist
PROC: 0DJD8ZZ Inspection of Lower Intestinal Tract, Via Natural or Artificial Opening Endoscopic (ICD-10-PCS; CPT 45378; principal; 2019-10-18 10:45)
DX: R19.5 Other fecal abnormalities (principal); F17.210 Nicotine dependence, cigarettes, uncomplicated; K57.30 Diverticulosis of large intestine without perforation or abscess without bleeding; K63.5 Polyp of colon
CPT/HCPCS: 45380; 99152; 99153; J2250; J3010

== ENCOUNTER → 2023-02-11 10:44 | Outpatient (CLI) | payer OTHER, SELFPAY ==
[2018-06-21 10:39] VITALS: BMI 27.4
--- NOTE | 2023-02-11 | DI.MG.S_ITS ---
BILATERAL DIGITAL SCREENING MAMMOGRAM 3D/2D WITH CAD: 02/11/2023 CLINICAL: Routine screening. Personal history of left breast cancer. Comparison is made to exams dated: 02/08/2022 mammogram, 02/20/2021 mammogram, 02/04/2021 mammogram, and 01/18/2019 mammogram - [facility]. Both breasts are heterogeneously dense, which may obscure small masses (category c / 51-75% glandular tissue). Current study was also evaluated with a Computer Aided Detection (CAD) system. There are benign post operative findings in the left breast. No significant masses, calcifications, or other findings are seen in either breast. IMPRESSION: BENIGN There is no mammographic evidence of malignancy. A 1 year screening mammogram is recommended. This exam was interpreted at Station ID: [id number]. NOTE: For mammograms, a report in lay terms will be sent to the patient. Approximately 15% of breast malignancies will not be visualized mammographically. In the management of a palpable breast mass, a negative mammogram must not discourage biopsy of a clinically suspicious lesion. Electronically Signed By: Alicia Bonilla M.D., PH.D eb/penrad:02/12/2023 23:56:55 letter sent: Normal Exam ACR BI-RADS Category 2: Benign Finding(s) 3342F
== END ==
PROVIDERS: PCP Physician Assistant; Referring Provider Physician Assistant; Visit Provider Physician Assistant
DX: Z12.31 Encounter for screening mammogram for malignant neoplasm of breast (principal); Z85.3 Personal history of malignant neoplasm of breast
CPT/HCPCS: 77063; 77067

== ENCOUNTER → 2025-01-01 10:56 | Outpatient (CLI) | payer BC, SELFPAY ==
[2018-06-21 10:39] VITALS: BMI 27.4
[2025-01-01 11:31] LABS: Hematocrit 43.5 % (36-46); Hemoglobin 14.9 g/dL (12.0-16.0); Mean Corpuscular HGB Conc 34.3 % (30-36); Mean Corpuscular Hemoglobin 30.8 PG (26-34); Mean Corpuscular Volume 89.6 fL (80-100); Platelet Count 314 X10^3/uL (150-400)
[2025-01-01 12:39] LABS: Alanine Aminotransferase 37 IU/L (<35); Albumin 4.6 g/dL (3.5-5.0); Albumin Globulin Ratio 1.5 (1.0-2.8); Alkaline Phosphatase 144 U/L (38-126); Blood Urea Nitrogen 22 mg/dL (7-17); Calcium 9.9 mg/dL (8.4-10.2); Carbon Dioxide 28 mmol/L (22-32); Chloride 105 mmol/L (98-107); Cholesterol 273 mg/dL (140-199); Estimated Glomerular Filt Rate > 60 mL/min (>60); Globulin 3.0 g/dL (1.7-4.1); Glucose 95 mg/dL (70-99); HEMOLYSIS < 15 (0-50); Potassium 4.0 mmol/L (3.4-5.1); Sodium 142 mmol/L (137-145); Total Protein 7.6 g/dL (6.3-8.2); Triglycerides 214 mg/dL (35-150)
[2025-01-01 12:50] LABS: HDL Cholesterol 121 mg/dL (40-60)
[2025-01-01 13:09] LABS: TSH w/ Reflex to FT4 4.18 uIU/mL (0.47-4.68)
== END ==
PROVIDERS: PCP Physician Assistant; Referring Provider Internal Medicine; Visit Provider Internal Medicine
DX: N95.1 Menopausal and female climacteric states (principal); E78.2 Mixed hyperlipidemia; Z85.3 Personal history of malignant neoplasm of breast
CPT/HCPCS: 36415; 80053; 80061; 84443; 85027